=== PATIENT | male | born 1975 | race Caucasian/White ===

== ENCOUNTER 2016-11-02 20:13 | Emergency (ER) ==
[2016-11-02] MEDS ORDERED: TORADOL IM STA (20:14)
[2016-11-02] MEDS ORDERED: NORFLEX IM STA (20:14)
[2016-11-02] MEDS ORDERED: DILAUDID 1 MG/ML SYRINGE IM STA (20:14)
[2016-11-02 20:21] VITALS: BP 149/101; TEMP 98.3; BMI 38.3
--- NOTE | 2016-11-02 20:34 | ED.PDOC ---
General ED Provider: Dr. ELSA GARCIA-ER Chief Complaint: Extremity Pain/Injury Stated Complaint: i hurt my arm about 2 weeks ago when arm wrestling and then today i hurt it swimming Time Seen by Physician: 20:15 Mode of Arrival: Walk-In Information Source: Patient Exam Limitations: No limitations Primary Care Provider: BA VILLEDA Nursing and Triage Documentation Reviewed and Agree: Yes Musculoskeletal Complaint Exam - Upper Extremity Complaint/Exam Location of Pain: Reports: Left, Arm Mechanism of Injury: Reports: Trauma Onset/Duration: 2 weeks Symptoms Are: Still present Timing: Constant Episodes Lasting: Hours Initial Severity: Mild Current Severity: Moderate Location: Reports: Discrete (left bicep) Character: Reports: Dull, Aching, Throbbing Aggravating: Reports: Movement, Lifting, Flexion, Extension, Internal rotation, External rotation Alleviating: Reports: None Non-Orthopedic Risk Factors: Reports: None Upper Extremity Findings: Present: Tenderness, Limited range of motion. Absent : Swelling, Ecchymosis, Abnormal contour, Rotation, Ligamentous instability, Laceration, Erythema, Warmth, Blisters, Other joint pain, Foreign body NV Bundle Intact Distal to Injury: Yes Compartment Syndrome Risk Factors: Present: Pain. Absent: Paralysis, Pallor, Pulselessness, Paresthesias Differential Diagnoses: Strain, Sprain, Other Quality Indicator For Non-Traumatic Chest Pain/Syncope: EKG Performed Review of Systems - Review Of Systems Constitutional: Reports: No symptoms Eyes: Reports: No symptoms Ears, Nose, Mouth, Throat: Reports: No symptoms Respiratory: Reports: No symptoms Cardiac: Reports: No symptoms GI: Reports: No symptoms : Reports: No symptoms Musculoskeletal: Reports: Muscle pain Skin: Reports: No symptoms Neurological: Reports: No symptoms Endocrine: Reports: No symptoms Hematologic/Lymphatic: Reports: No symptoms All Other Systems: Reviewed and Negative Past Medical History - Past Medical History Previously Healthy: No Endocrine: Reports: Unknown Cardiovascular: Reports: Unknown Respiratory: Reports: Unknown Hematological: Reports: Unknown Gastrointestinal: Reports: Unknown Genitourinary: Reports: Unknown Neuro/Psych: Reports: Unknown Musculoskeletal: Reports: Unknown Cancer: Reports: Unknown - Surgical History General Surgical History: Reports: Unknown - Family History Family History: Reports: Unknown - Social History Smoking Status: Current every day smoker, Heavy tobacco smoker Hx Substance Use: No Alcohol Screening: None Lives: With family - Immunizations Tetanus Shot up to Date: Yes Physical Exam - Physical Exam Appearance: Well-appearing Pain Distress: Moderate Eyes: LUI, EOMI, Conjunctiva clear ENT: Ears normal, Nose normal, Oropharynx normal Neck: Supple Respiratory: Airway patent, Breath sounds clear, Breath sounds equal, Respirations nonlabored Cardiovascular: RRR, Pulses normal, No rub, No murmur GI/: Soft, Nontender, No masses, Bowel sounds normal, No Organomegaly Musculoskeletal: Limited strength Skin: Warm, Dry, Normal color Neurological: Sensation intact, Motor intact, Reflexes intact, Cranial nerves intact, Alert, Oriented Psychiatric: Affect appropriate, Mood appropriate Interpretation - Radiology Interpretation Radiology Interpretation By: Radiologist Radiology Results: Negative - EKG Interpretation Time of EKG #1: 20:46 Rate: Normal Rhythm: Sinus Ectopy: None [place]: NL ST Segment: Normal Re-Evaluation - Re-Evaluation Time of Re-Evaluation: 20:46 Status: Improved Vital Signs Stable: Yes Pain Level: 1 Appearance: NAD Lungs: Clear Skin: Warm and Dry Neuro: Alert and Oriented X3 CV: RRR Critical Care Note - Critical Care Note Total Time (mins): 0 Course - Course Orders, Labs, Meds: Orders Category Date Time Status EKG-(ED ONLY) Stat CARDIO 11/02/16 20:15 Ordered Splint [ED SPLINT APPLICATION] .ONCE EMERGENCY 11/02/16 20:45 Active Hydromorphone HCl [Dilaudid 1 mg/ml Syringe] MEDS 11/02/16 20:14 Discontinued 1 mg IM ONCE STA Ketorolac Tromethamine [Toradol] MEDS 11/02/16 20:14 Discontinued 60 mg IM ONCE STA Orphenadrine Citrate [Norflex] MEDS 11/02/16 20:14 Discontinued 60 mg IM ONCE STA HUMERUS, LEFT 2VIEWS Stat RADS 11/02/16 20:14 Taken Medications Discontinued Medications Generic Name Dose Route Start Last Admin Trade Name Freq PRN Reason Stop Dose Admin Hydromorphone HCl 1 mg 11/02/16 20:14 11/02/16 20:40 Dilaudid 1 Mg/Ml Syringe IM 11/02/16 20:15 1 mg ONCE STA Administration Ketorolac Tromethamine 60 mg 11/02/16 20:14 11/02/16 20:41 Toradol IM 11/02/16 20:15 60 mg ONCE STA Administration Orphenadrine Citrate 60 mg 11/02/16 20:14 11/02/16 20:40 Norflex IM 11/02/16 20:15 60 mg ONCE STA Administration Vital Signs: Temp Pulse Resp BP Pulse Ox 11/02/16 20:13 98.3 F 74 20 149/101 H 97 Departure - Departure Time of Disposition: 20:46 Disposition: HOME SELF-CARE Discharge Problem: Biceps muscle tear Qualifiers: Encounter type: initial encounter Laterality: left Qualifier Code: (S46.112A) Strain of muscle, fascia and tendon of long head of biceps, left arm, initial encounter Instructions: Tendon Rupture (ED) Condition: Good Pt referred to PMD for follow-up: Yes Additional Instructions: stay in sling--norco 7.5mg q 4hrs prn pain #12--f/u with pcp tomorrow--consider mri of the arm vs ortho referral Allergies/Adverse Reactions: Allergies morphine Adverse Reaction (Verified 11/02/16 20:19) Penicillins Adverse Reaction (Verified 11/02/16 20:19) Home Medications: Ambulatory Orders Albuterol Sulfate [Proair Hfa] 2 puff IH Q4H PRN 09/28/12 Ranitidine HCl 600 mg PO BID 11/02/16 Disposition Discussed With: Patient, Family
--- NOTE | 2016-11-03 02:06 | DI ---
EXAM: Left humerus two views HISTORY: Trauma COMPARISON: None. FINDINGS: There is no acute fracture or dislocation. The surrounding soft tissues are unremarkable . IMPRESSION: No acute findings.
== END 2016-11-02 21:00 | disposition home or self-care (01) ==
LOC: ED 20:13
DX: S46.112A Strain of muscle, fascia and tendon of long head of biceps, left arm, initial encounter (principal); X50.1XXA Overexertion from prolonged static or awkward postures, initial encounter; Y93.11 Activity, swimming; F17.210 Nicotine dependence, cigarettes, uncomplicated
CPT/HCPCS: 93005; 93010; 96372; 99283

== ENCOUNTER 2018-03-13 14:41 | Emergency (ER) | payer OTHER ==
[2018-03-13 14:46] VITALS: BP 174/94; TEMP 98.6; BMI 48.1
--- NOTE | 2018-03-13 16:13 | ED.PDOC ---
General ED Provider: Dr. ELSA MAYERS Chief Complaint: Abdominal Pain Stated Complaint: Lt Groin and hip pain. Unable to lift leg up. Sore yesterday when awakening but went walking all day deer hunting. This morning developed severe pain Time Seen by Physician: 15:50 Mode of Arrival: Walk-In Information Source: Patient Exam Limitations: Clinical condition Nursing and Triage Documentation Reviewed and Agree: Yes Does patient meet sepsis criteria?: No System Inflammatory Response Syndrome: Not Applicable Sepsis Protocol: For patient's 13 years and over: Temp is 96.8 and below OR 101 and greater Pulse >90 BPM Resp >20/minute Acutely Altered Mental Status Are patient's symptoms suggestive of a new infection, such as: -Pneumonia -Skin, Soft Tissue -Endocarditis -UTI -Bone, Joint Infection -Implantable Device -Acute Abdominal Infection -Wound Infection -Meningitis -Blood Stream Catheter Infection -Unknown Review of Systems - Review Of Systems Constitutional: Reports: No symptoms Eyes: Reports: No symptoms Ears, Nose, Mouth, Throat: Reports: No symptoms Respiratory: Reports: No symptoms Cardiac: Reports: No symptoms GI: Reports: No symptoms Musculoskeletal: Reports: Joint pain, Muscle pain, Muscle stiffness Skin: Reports: No symptoms Neurological: Reports: No symptoms Endocrine: Reports: No symptoms Hematologic/Lymphatic: Reports: No symptoms All Other Systems: Reviewed and Negative Past Medical History - Past Medical History Previously Healthy: No Endocrine: Reports: Unknown Cardiovascular: Reports: Unknown Respiratory: Reports: Unknown Hematological: Reports: Unknown Gastrointestinal: Reports: Unknown Genitourinary: Reports: Unknown Neuro/Psych: Reports: Unknown Musculoskeletal: Reports: Unknown Cancer: Reports: Unknown - Surgical History General Surgical History: Reports: Unknown - Family History Family History: Reports: Unknown - Social History Smoking Status: Current every day smoker, Heavy tobacco smoker Hx Substance Use: No Alcohol Screening: None Physical Exam - Physical Exam Appearance: Well-appearing, Obese Ill-appearing: None Pain Distress: Moderate Eyes: LUI, EOMI, Conjunctiva clear ENT: Ears normal, Nose normal, Oropharynx normal Neck: Supple Respiratory: Airway patent Cardiovascular: RRR, Pulses normal, No rub, No murmur GI/: Soft, Nontender, No masses, Bowel sounds normal, No Organomegaly Musculoskeletal: Normal strength, No edema, No calf tenderness, Limited ROM (Lt hip ) Neurological: Sensation intact, Motor intact, Reflexes intact, Cranial nerves intact, Alert, Oriented Psychiatric: Affect appropriate, Mood appropriate Critical Care Note - Critical Care Note Total Time (mins): 60 Course - Course Hematology/Chemistry: 03/13/18 16:15 03/13/18 16:15 Orders, Labs, Meds: Lab Review 03/13/18 03/13/18 03/13/18 15:00 16:15 16:15 WBC 8.25 RBC 4.45 L Hgb 13.6 L Hct 41.3 L MCV 92.8 MCH 30.6 MCHC 32.9 RDW Coeff of Henri 13.3 Plt Count 236 Immature Gran % (Auto) 0.1 Neut % (Auto) 67.2 Lymph % (Auto) 17.8 [place] % (Auto) 7.5 Eos % (Auto) 6.8 Baso % (Auto) 0.6 Immature Gran # (Auto) 0.0 Neut # (Auto) 5.5 Lymph # (Auto) 1.5 [place] # (Auto) 0.6 Eos # (Auto) 0.6 Baso # (Auto) 0.1 Sodium 134.3 L Potassium 4.32 Chloride 102.1 Carbon Dioxide 29.0 Anion Gap 7.52 BUN 11.0 Creatinine 0.72 Estimated GFR (MDRD) 121.00 BUN/Creatinine Ratio 15.27 Glucose 117.5 H Calcium 9.37 Total Bilirubin 0.34 AST 52.1 ALT 64.6 H Alkaline Phosphatase 74.5 Total Protein 7.36 Albumin 4.07 Globulin 3.29 Albumin/Globulin Ratio 1.23 Urine Color Yellow Urine Clarity Clear Urine pH 6.0 Ur Specific [place] 1.020 Urine Protein Negative Urine Glucose (UA) Negative Urine Ketones Negative Urine Blood Negative Urine Nitrite Negative Urine Bilirubin Negative Urine Urobilinogen 0.2 Ur Leukocyte Esterase Negative Orders Category Date Time Status CBC W/ AUTO DIFF Stat LAB 03/13/18 16:15 Completed CMP [COMPREHENSIVE METABOLIC PANEL] Stat LAB 03/13/18 16:15 Completed URINALYSIS C & S IF INDICATED Stat LAB 03/13/18 15:00 Completed Ketorolac Tromethamine [Toradol] MEDS 03/13/18 16:12 Discontinued 30 mg IM ONCE STA Nalbuphine HCl [Nubain] MEDS 03/13/18 17:41 Discontinued 10 mg IM ONCE STA CT ABDOMEN/PELVIS WO CONTRAST Stat RADS 03/13/18 16:[address] HIP LEFT WITHOUT CONTRAST Stat RADS 03/13/18 16:11 Completed Medications Discontinued Medications Generic Name Dose Route Start Last Admin Trade Name Ondina PRN Reason Stop Dose Admin Ketorolac Tromethamine 30 mg 03/13/18 16:12 03/13/18 16:19 Toradol IM 03/13/18 16:13 30 mg ONCE STA Administration Nalbuphine HCl 10 mg 03/13/18 17:41 03/13/18 17:48 Nubain IM 03/13/18 17:42 10 mg ONCE STA Administration Vital Signs: Temp Pulse Resp BP Pulse Ox 03/13/18 14:42 98.6 F 106 H 20 174/94 H 95 Departure - Departure Time of Disposition: 19:00 Disposition: HOME SELF-CARE Discharge Problem: Strain of hip flexor, Tendonitis Instructions: Muscle Strain (ED) Condition: Fair Pt referred to PMD for follow-up: Yes ( next week ) IPMP verified?: No Additional Instructions: Ice /elevation Meds as directed Return if worsens or fails to improve over next 72 hrs Prescriptions: Hydrocodone/Acetaminophen [[place] 5-325 Tablet] 1 - 2 tab PO Q4-6H PRN #20 PRN Reason: Pain Prednisone 10 mg PO DAILY #20 tablet Allergies/Adverse Reactions: Allergies morphine Adverse Reaction (Verified 03/13/18 14:48) Penicillins Adverse Reaction (Verified 03/13/18 14:48) Home Medications: Ambulatory Orders Albuterol Sulfate [Proair Hfa] 2 puff IH Q4H PRN 09/28/12 Ranitidine HCl 600 mg PO BID 11/02/16 Hydrocodone/Acetaminophen [[place] 5-325 Tablet] 1 - 2 tab PO Q4-6H PRN #20 Lisinopril 20 mg PO DAILY 03/13/18 Phentermine HCl 37.5 mg PO DAILY 03/13/18 Prednisone 10 mg PO DAILY #20 tablet 03/13/18 Venlafaxine HCl [Effexor] 75 mg PO DAILY 03/13/18 Disposition Discussed With: Patient, Family
[2018-03-13] MEDS: TORADOL IM STA (16:19)
--- NOTE | 2018-03-13 17:06 | CT ---
EXAM: CT abdomen pelvis without contrast TECHNIQUE: Helical axial CT of the abdomen and pelvis was performed without contrast with coronal an d sagittal reconstructions. COMPARISON: CT abdomen pelvis from 11/12/2010 HISTORY: Abdominal pain FINDINGS: There is no acute abnormality. Specifically there is no mesenteric inflammation, free air, free fluid or bowel wall thickening or edema or pathologic lymph nodes or obstruction or ileus. The appendix is normal There are no inflamed colonic diverticula. The liver, spleen, pancreas,and adrenal glands show no acute abnormality. There is advanced hepatic s teatosis. Lung bases are well-aerated. There is no hiatal hernia. There has been prior cholecystecto my. There is no biliary or pancreatic ductal dilatation. There are no suspicious renal masses or large cysts and no hydronephrosis. There are no kidney stones . Both ureters demonstrate normal course and caliber. There is no filling defect in the urinary blad chalo. There is a fat-containing umbilical hernia. There are fat-containing bilateral inguinal hernias. The aorta is normal with no aneurysm or calcific atherosclerosis. There are no acute osseous abnormaliti es. IMPRESSION: 1. No acute abnormality in the abdomen or pelvis. Specifically there is no free air free fluid or b owel wall thickening or edema. 2. Fatty liver. 3. Fat-containing umbilical and bilateral inguinal hernias. 4. Prior cholecystectomy.
--- NOTE | 2018-03-13 17:11 | CT ---
EXAM: CT of the left hip without contrast TECHNIQUE: Helical axial CT of the left hip was performed without contrast with coronal and sagittal reconstructions. This COMPARISON: Plain film series of the left hip from same day HISTORY: Hip pain FINDINGS: There is no acute fracture or dislocation. Alignment is anatomic. There is no evidence f or femoral neck fracture or acetabular fracture. There is no impaction. The greater and lesser troc hanter are intact. The sacral ala is intact. There is no evidence for superior or inferior pubic ra mus fracture. Soft tissues are negative. There is a moderate degree of degenerative change noted in the left hip joint. IMPRESSION: 1. Degenerative change of the left hip with no acute osseous abnormality.
[2018-03-13] MEDS: NUBAIN IM STA (17:48)
== END 2018-03-13 19:08 | disposition home or self-care (01) ==
LOC: ED 14:41
DX: S76.012A Strain of muscle, fascia and tendon of left hip, initial encounter (principal); M76.02 Gluteal tendinitis, left hip; X50.1XXA Overexertion from prolonged static or awkward postures, initial encounter; F17.210 Nicotine dependence, cigarettes, uncomplicated
CPT/HCPCS: 36415; 80053; 81001; 85025; 96372; 99283

== ENCOUNTER 2022-09-06 20:40 | Observation (INO) ==
--- NOTE | 2022-09-06 21:05 | ED.PDOC ---
General ED Provider: Dr. MADDIE CHAND MD Chief Complaint: Extremity Pain/Injury Stated Complaint: Patient history of COPD, hypertension, type 2 diabetes complains of having swelling in both lower extremities, noticed a blister left drainage from his right blackmon 2 days ago placed on antibiotic Bactrim DS yesterday. Patient complains of shortness of breath has history of sleep apnea, patient complains of pain in both calves. Denies coughing, chest pain, diaphoresis, Time Seen by Provider: 09/06/22 20:57 Mode of Arrival: Walk-In Information Source: Patient Exam Limitations: No limitations Nursing and Triage Documentation Reviewed and Agree: Yes Does patient meet sepsis criteria?: Yes If yes, has appropriate treatment been initiated?: Yes System Inflammatory Response Syndrome: Not Applicable Sepsis Protocol: For patient's 13 years and over: Temp is 96.8 and below OR 101 and greater Pulse >90 BPM Resp >20/minute Acutely Altered Mental Status Are patient's symptoms suggestive of a new infection, such as: -Pneumonia -Skin, Soft Tissue -Endocarditis -UTI -Bone, Joint Infection -Implantable Device -Acute Abdominal Infection -Wound Infection -Meningitis -Blood Stream Catheter Infection -Unknown Musculoskeletal Complaint Exam Lower Extremity Complaint/Exam Location of Pain: Reports Right, Left and Leg (Lower extremity swelling with redness of the shins.) Mechanism of Injury: Reports No known trauma Onset/Duration: Past 2 days Symptoms Are: Still present Initial Severity: Moderate Current Severity: Moderate Character: Reports Sharp and Throbbing Aggravating: Reports Movement and Weight bearing Able to Bear Weight: Yes Associated Signs and Symptoms: Reports Swelling and Redness Related History: Denies Similar episode DVT Risk Factors: Reports Recent bedrest (Morbidly obese) Lower Extremity Findings: Present Swelling, Erythema, Warmth and Blisters NV Bundle Intact Distal to Injury: No Compartment Syndrome Risk Factors: Absent Pain, Paralysis, Pallor, Pulselessness or Paresthesias Don's Sign Present: Yes Differential Diagnoses: Other (Bilateral lower extremity cellulitis, DVT lower extremity.) Review of Systems Review Of Systems Constitutional: Reports Fever Eyes: Reports No symptoms Respiratory: Reports No symptoms Cardiac: Reports No symptoms GI: Reports No symptoms : Reports No symptoms Musculoskeletal: Reports Muscle pain and Other (Bilateral calf pain swelling of the right lower extremity was redness.) Skin: Reports No symptoms Neurological: Reports No symptoms; Denies Anxiety, Depressed or Emotional p roblems Endocrine: Reports No symptoms; Denies Excessive sweating Hematologic/Lymphatic: Reports No symptoms; Denies Anemia All Other Systems: Reviewed and Negative [facility] Social History Smoking and tobacco status: Current every day smoker Physical Exam Physical Exam Appearance: Reports Well-appearing Ill-appearing: Not Applicable Pain Distress: Mild Eyes: Reports LUI; Denies Conjunctiva inflammed ENT: Reports Ears normal, Nose normal and Oropharynx normal; Denies TMs Occluded Neck: Supple Respiratory: Reports Airway patent, Breath sounds clear and Breath sounds equal; Denies Breath sounds diminished Cardiovascular: Reports Pulses normal and Tachycardia GI/: Reports Soft, Nontender, Bowel sounds normal and No Organomegaly; Denies Tender Musculoskeletal: Reports Normal strength, Edema and Calf tenderness (There is bilateral calf tenderness noted. There is erythema of the mid to distal right blackmon with a ruptured bullae formation and surrounding erythema and dried drainage. Bilateral Homans' sign) Skin: Reports Warm (There is bilateral blackmon erythema and warmth in the right greater than left. Bilateral pedis pulses 2+.) Neurological: Reports Sensation intact Psychiatric: Reports Affect appropriate and Mood appropriate Interpretation EKG Interpretation Time of EKG #1: 21:32 Rate: Tachy Rhythm: Sinus Ectopy: None [place]: [place] ST Segment: Other Interpretation: EKG interpretation by myself, Radiology Interpretation Radiology Interpretation By: Radiologist Radiology Results: No acute changes Exam Interpreted: Portable CXR Xray Comments: Portable chest x-ray interpreted by the radiologist. Re-Evaluation Re-Evaluation Time of Re-Evaluation: 00:01 Status: Improved Vital Signs Stable: Yes Pain Level: Headache discomfort improved from 8/10 down to a 3/10. Physician Notification Case Discussed Physician Notified: Discussed with hospitalist Rebecca Time of Notification: 23:10 Comments: Discussed patient's presentation emergency room course results of the lab tests EKG, portable chest x-ray and CT of the chest. Will admit to observation. Critical Care Note Critical Care Note Total Critical Care Time (mins): 20 Course Course 09/06/22 21:40 09/06/22 21:40 Orders, Labs, Meds: Lab Review 09/06/22 09/06/22 20:26 21:40 WBC 6.93 RBC 4.25 L Hgb 13.4 L Hct 40.7 L MCV 95.8 H MCH 31.5 H MCHC 32.9 RDW Coeff of Henri 12.8 Plt Count 204 Immature Gran % (Auto) 0.4 Neut % (Auto) 75.1 Lymph % (Auto) 7.9 L [place]con % (Auto) 10.4 H Eos % (Auto) 5.9 Baso % (Auto) 0.3 Neut # (Auto) 5.2 Lymph # (Auto) 0.6 [place]con # (Auto) 0.7 Eos # (Auto) 0.4 Baso # (Auto) 0.0 Immature Gran # (Auto) 0.0 PT 10.8 INR 1.04 APTT 26.7 Puncture Site Lr Base Excess 7.9 H O2 Saturation 92.3 L ABG pH 7.49 H ABG pCO2 41.0 ABG pO2 59.0 L* ABG HCO3 31.2 H ABG Total CO2 32.5 H Baljeet Test Pos Hemoglobin 0.8 Oxyhemoglobin 90.9 L Carboxyhemoglobin 1.7 H Total Hemoglobin 13.4 O2 Delivery Device Ra FiO2 % 21.0 Sodium 136.7 Potassium 3.51 Chloride 97.1 L Carbon Dioxide 35.2 H Anion Gap 7.91 BUN 7.8 L Creatinine 0.64 Estimated GFR (MDRD) 135.00 BUN/Creatinine Ratio 12.18 Glucose 141.5 H Lactic Acid 3.50 H Calcium 8.66 Total Bilirubin 0.48 AST 151.2 H ALT 68.4 H Alkaline Phosphatase 65.4 Troponin I < 0.012 Total Protein 7.43 Albumin 4.24 Globulin 3.19 Albumin/Globulin Ratio 1.32 D-Dimer 589.96 H Orders Category Date Time Status ABG DRAW REQUEST Stat CARDIO 09/06/22 21:05 Completed EKG-(ED ONLY) Stat CARDIO 09/06/22 21:05 Completed NPO REMINDER: IMAGING ONCE CARE 09/06/22 22:52 Completed TELEMETRY MONITORING TELE CARE 09/06/22 21:05 Active ED IV/MEDIPORT/POWERPORT .ONCE EMERGENCY 09/06/22 21:08 Active ABG COOX Stat LAB 09/06/22 20:26 Completed BLOOD CULTURE (ED ONLY) Stat LAB 09/06/22 21:40 Received CBC W/ AUTO DIFF Stat LAB 09/06/22 21:40 Completed CMP [COMPREHENSIVE METABOLIC PANEL] Stat LAB 09/06/22 21:40 Completed D-DIMER Stat LAB 09/06/22 21:40 Completed LACTIC ACID Stat LAB 09/06/22 21:40 Completed LACTIC ACID Stat LAB 09/07/22 00:41 Ordered PT WITH INR Stat LAB 09/06/22 21:40 Completed PTT [PARTIAL THROMBOPLASTIN TIME] Stat LAB 09/06/22 21:40 Completed TROPONIN I Stat LAB 09/06/22 21:40 Completed 0.9 % Sodium Chloride [Saline Flush] Meds 09/06/22 21:08 Active 1 syr IVF PRN PRN Acetaminophen [Tylenol] Meds 09/06/22 22:37 Discontinued 1,000 mg PO ONCE ONE Enoxaparin Sodium [Lovenox] Meds 09/06/22 22:52 Discontinued 100 mg SUBCUT ONCE STA Fentanyl Citrate/Pf [Sublimaze] Meds 09/06/22 23:50 Discontinued 50 mcg IVP ONCE ONE Lidocaine HCl/Pf [Lidocaine HCl 1% Sdv] Meds 09/06/22 22:06 Discontinued 5 ml SUBCUT ONCE STA Ondansetron HCl/Pf [Zofran 4 mg/2 ml] Meds 09/06/22 23:18 Discontinued 4 mg IVP ONCE STA Sodium Chloride 0.9% [Sodium Chloride] 1,000 ml Meds 09/06/22 22:31 Discontinued IV BOLUS Sodium Chloride 0.9% [Sodium Chloride] 500 ml Meds 09/06/22 21:08 Discontinued IV BOLUS Vancomycin/Water For Inj (Peg) [Vancomycin 1 Gram/200 Meds 09/06/22 22:37 Discontinued ml Premix] 1 gm in 200 ml IV ONCE CHEST, 1V AP ONLY Stat RADS 09/06/22 21:05 Completed CTA CHEST PE PROTOCOL Stat RADS 09/06/22 22:52 Completed Medications Generic Name Dose Route Start Last Admin Trade Name Freq PRN Reason Stop Dose Admin Sodium Chloride 1 syr 09/06/22 21:08 0.9% Sodium Chloride 10 Ml Disp.Syrin IVF PRN PRN To flush IV Discontinued Medications Generic Name Dose Route Start Last Admin Trade Name Freq PRN Reason Stop Dose Admin Acetaminophen 1,000 mg 09/06/22 22:37 09/06/22 22:43 Acetaminophen 500 Mg Tablet PO 09/06/22 22:38 1,000 mg ONCE ONE Administration Enoxaparin Sodium 100 mg 09/06/22 22:52 09/06/22 23:40 Enoxaparin Sodium 100 Mg/Ml Syr SUBCUT 09/06/22 22:53 100 mg ONCE STA Administration Fentanyl Citrate 50 mcg 09/06/22 23:50 09/07/22 00:18 Fentanyl 50 Mcg/Ml Sdv IVP 09/06/22 23:51 50 mcg ONCE ONE Administration Sodium Chloride 500 mls @ 500 mls/hr 09/06/22 21:08 09/06/22 21:40 Sodium Chloride IV 09/06/22 22:07 500 mls/hr BOLUS STA Administration Sodium Chloride 1,000 mls @ 1,000 mls/hr 09/06/22 22:31 09/06/22 22:45 Sodium Chloride IV 09/06/22 23:30 1,000 mls/hr BOLUS STA Administration VANCOMYCIN/WATER FOR INJ (PEG) 1 gm in 200 mls @ 200 mls/hr 09/06/22 22:37 09/06/22 22:44 Vancomycin 1 Gram/200 Ml Premix IV 09/06/22 23:36 200 mls/hr ONCE ONE Administration Lidocaine HCl 5 ml 09/06/22 22:06 09/06/22 22:11 Lidocaine Hcl/Pf 1% 5 Ml Vial SUBCUT 09/06/22 22:07 1 ml ONCE STA Administration Ondansetron HCl 4 mg 09/06/22 23:18 09/06/22 23:24 Ondansetron Hcl/Pf 4 Mg/2 Ml Sdv IVP 09/06/22 23:19 4 mg ONCE STA Administration Vital Signs: Temp Pulse Resp BP Pulse Ox 09/06/22 20:41 103 F H 104 H 20 187/103 H 94 L Discharge Plan Discharge Patient Disposition: PLACED OBSERVATION Discharge Problem: Bilateral lower leg cellulitis Did you review [place] [employer] for ALL controlled substances?: No ED Provider: MADDIE CHAND Condition: Stable Physician Progress Note: History obtained from patient []Patient history of COPD, hypertension, type 2 diabetes complains of having swelling in both lower extremities, noticed a blister left drainage from his ri ght blackmon 2 days ago placed on antibiotic Bactrim DS yesterday. Patient complains of shortness of breath has history of sleep apnea, patient complains of pain in both calves. Denies coughing, chest pain, diaphoresis, Patient placed on sepsis protocol ministered 1500 mL over 2 hours, after 2 sets of blood culture ministered vancomycin 1500 mg IV piggyback. Tylenol gram orally Zofran 4 mg and fentanyl 50 mics IV. Chest x-ray interpreted by the radiologist unremarkable. CT of the chest PE protocol interpreted by the radiologist shows evidence of pulm embolism. All laboratory data CBC CMP interpreted by myself. D-dimer 589, lactic acid 3.5, troponin 0.012. CBC to capsule count is normal 6900. EKG interpreted by myself consistent with normal sinus rhythm sinus tachycardia rate 108. .. There is no prolongation of NH QT interval noted. Discussed with hospitalist Hortensia at 2310 for observation. Differential diagnosis: 1) cellulitis bilateral lower extremity 2) DVT lower extremity 3) acute pulmonary embolism
[2022-09-06] MEDS ORDERED: SODIUM CHLORIDE 500 ML IV STA (21:08)
--- NOTE | 2022-09-06 21:24 | DI ---
EXAM: SINGLE VIEW OF THE CHEST. History: Dyspnea. Comparison: Chest radiograph 09/02/2021 FINDINGS: Heart size is normal. No consolidation. No pleural fluid and no pneumothorax. No acute osseous abnormalities. Impression: Normal study
[2022-09-06 22:01] LABS: BASOPHILS % (AUTO) 0.3 % (0.0-3.0); EOSINOPHILS # (AUTO) 0.4 K/ul (0.0-0.7); EOSINOPHILS % (AUTO) 5.9 % (0.0-7.0); HEMATOCRIT 40.7 % (42.0-52.0); HEMOGLOBIN 13.4 g/dl (14.0-18.0); IMMATURE GRANULOCYTE % (AUTO) 0.4 % (0.0-5.0); LYMPHOCYTES # (AUTO) 0.6 K/uL (0.60-3.4); LYMPHOCYTES % (AUTO) 7.9 (10.0-50.0); MEAN CORPUSCULAR HEMOGLOBIN 31.5 pg (27.0-31.0); MEAN CORPUSCULAR HGB CONC 32.9 (31.8-35.4); MEAN CORPUSCULAR VOLUME 95.8 fl (80.0-94.0); MONOCYTES # (AUTO) 0.7 K/uL (0.4-2.0); MONOCYTES % (AUTO) 10.4 (0-10); NEUTROPHILS # (AUTO) 5.2 K/ul (2.0-6.9); NEUTROPHILS % (AUTO) 75.1 % (42.2-75.2); PLATELET COUNT 204 10^3/uL (140-440); RDW COEFFICIENT OF VARIATION 12.8 % (11.6-14.8); RED BLOOD COUNT 4.25 10^6/ul (4.70-6.10); WHITE BLOOD COUNT 6.93 K/ul (4.2-10.2)
[2022-09-06] MEDS ORDERED: LIDOCAINE HCL 1% SDV SUBCUT STA (22:06)
[2022-09-06 22:12] LABS: ALANINE AMINOTRANSFERASE 68.4 U/L (0-50); ALBUMIN 4.24 g/dL (3.5-5.0); ALKALINE PHOSPHATASE 65.4 U/L (38-126); ASPARTATE AMINO TRANSFERASE 151.2 U/L (17-59); BILIRUBIN,TOTAL 0.48 mg/dL (0.2-1.3); BLOOD UREA NITROGEN 7.8 mg/dL (9-20); CALCIUM 8.66 mg/dL (8.4-10.2); CARBON DIOXIDE 35.2 mmol/L (22-30.0); CHLORIDE 97.1 mmol/L (98-107); CREATININE 0.64 mg/dL (0.60-1.10); GLUCOSE 141.5 mg/dL (74-106); POTASSIUM 3.51 mmol/L (3.5-5.1); SODIUM 136.7 mmol/L (134.5-145); TOTAL PROTEIN 7.43 g/dL (6.3-8.2)
[2022-09-06 22:18] LABS: ABG O2 HGB 90.9 % (95-100); ABG PH 7.49 (7.35-7.45); BEecf 7.9 (-2.0-3.0); COHb 1.7 (0.5-1.5); HCO3 31.2 (21-28); MetHb 0.8 (0-1.5); TCO2 32.5 (19-24); sO2 92.3 % (94-98); tHb 13.4 g/dl (11.7-17.4)
[2022-09-06 22:27] LABS: TROPONIN I < 0.012 ng/ml (0.0000-0.120)
[2022-09-06] MEDS ORDERED: SODIUM CHLORIDE 1,000 ML IV STA (22:31)
[2022-09-06] MEDS ORDERED: TYLENOL PO ONE (22:37)
[2022-09-06] MEDS ORDERED: VANCOMYCIN 1 GRAM/200 ML PREMIX 1 GM/200 ML BAG IV ONE (22:37)
[2022-09-06 22:38] LABS: PARTIAL THROMBOPLASTIN TIME 26.7 SEC (23.9-40.0); PROTHROMBIN TIME 10.8 SEC (9.3-11.0)
[2022-09-06] MEDS ORDERED: LOVENOX SUBCUT STA (22:52)
[2022-09-06] MEDS ORDERED: ZOFRAN 4 MG/2 ML IVP STA (23:18)
[2022-09-06] MEDS ORDERED: SUBLIMAZE IVP ONE (23:50)
--- NOTE | 2022-09-07 | CT ---
EXAM: CTA CHEST HISTORY: Elevated D-dimer COMPARISON: None. FINDINGS: Postcontrast helical imaging was obtained through the thorax utilizing 2.5-mm collimation. The sagittal and coronal reconstructions were imaged and reviewed. Source images were utilized to our create rotating 3-D MIP images.. The thoracic inlet is unremarkable. There is no hilar or medias tinal lymphadenopathy. There is no evidence of pulmonary embolus. Heart is normal in size without p ericardial effusion. No consolidation or effusion.. Fatty infiltration is seen within the visualize d liver. Likely remote sternal body fracture. IMPRESSION: No evidence of pulmonary embolus. All CT scans are performed using dose optimization techniques as appropriate to the performed exam an d include at least one of the following: Automated exposure control, adjustment of the mA and/or kV according t o size, and the use of iterative reconstruction technique.
[2022-09-07] MEDS ORDERED: SODIUM CHLORIDE 1,000 ML IV STA (01:28)
[2022-09-07] MEDS ORDERED: SODIUM CHLORIDE 500 ML IV ONE (01:28)
[2022-09-07 02:24] VITALS: BMI 51.3
[2022-09-07] MEDS: TYLENOL PO PRN ×3 (04:21→20:25)
[2022-09-07 06:52] LABS: BASOPHILS % (AUTO) 0.4 % (0.0-3.0); EOSINOPHILS # (AUTO) 0.3 K/ul (0.0-0.7); EOSINOPHILS % (AUTO) 4.8 % (0.0-7.0); HEMOGLOBIN 11.9 g/dl (14.0-18.0); IMMATURE GRANULOCYTE % (AUTO) 0.4 % (0.0-5.0); LYMPHOCYTES # (AUTO) 0.8 K/uL (0.60-3.4); LYMPHOCYTES % (AUTO) 14.4 (10.0-50.0); MEAN CORPUSCULAR HEMOGLOBIN 31.6 pg (27.0-31.0); MEAN CORPUSCULAR HGB CONC 33.1 (31.8-35.4); MEAN CORPUSCULAR VOLUME 95.5 fl (80.0-94.0); MONOCYTES # (AUTO) 0.7 K/uL (0.4-2.0); MONOCYTES % (AUTO) 12.8 (0-10); NEUTROPHILS # (AUTO) 3.6 K/ul (2.0-6.9); NEUTROPHILS % (AUTO) 67.2 % (42.2-75.2); PLATELET COUNT 174 10^3/uL (140-440); RED BLOOD COUNT 3.77 10^6/ul (4.70-6.10); WHITE BLOOD COUNT 5.41 K/ul (4.2-10.2)
[2022-09-07] MEDS ORDERED: VANCOMYCIN 1.5 GRAM/300 ML PREMIX 1.5 GM/300 ML BAG IV SCH (07:00)
[2022-09-07 07:03] LABS: ALANINE AMINOTRANSFERASE 59.3 U/L (0-50); ALBUMIN 3.57 g/dL (3.5-5.0); ASPARTATE AMINO TRANSFERASE 122.2 U/L (17-59); BILIRUBIN,TOTAL 0.32 mg/dL (0.2-1.3); BLOOD UREA NITROGEN 8.4 mg/dL (9-20); CALCIUM 7.94 mg/dL (8.4-10.2); CARBON DIOXIDE 33.6 mmol/L (22-30.0); CHLORIDE 100.4 mmol/L (98-107); CREATININE 0.7 mg/dL (0.60-1.10); GLUCOSE 145.6 mg/dL (74-106); POTASSIUM 3.67 mmol/L (3.5-5.1); SODIUM 135.7 mmol/L (134.5-145); TOTAL PROTEIN 6.45 g/dL (6.3-8.2)
[2022-09-07] MEDS ORDERED: GLUCOPHAGE PO SCH (08:30)
[2022-09-07] MEDS ORDERED: LASIX TAB PO SCH (09:00)
[2022-09-07] MEDS ORDERED: NORVASC PO SCH (09:00)
[2022-09-07] MEDS ORDERED: MAXIPIME 1 GM VIAL 1 GM in SODIUM CHLORIDE 50 ML IV SCH (09:00)
[2022-09-07] MEDS: MAXIPIME 2 GM/50 ML D5W 2 GM/50 ML BAG IV SCH ×3 (09:39→20:20)
[2022-09-07] MEDS: NORVASC PO SCH (09:40)
[2022-09-07] MEDS: ZESTRIL PO SCH (09:40)
[2022-09-07] MEDS: PRILOSEC PO SCH (09:40)
[2022-09-07] MEDS: LASIX TAB PO SCH (09:40)
[2022-09-07] MEDS: NEURONTIN PO SCH (09:40)
[2022-09-07] MEDS: LOVENOX SUBCUT SCH ×2 (09:40→20:20)
[2022-09-07] MEDS: VANCOMYCIN 1.5 GRAM/300 ML PREMIX 1.5 GM/300 ML BAG IV SCH ×2 (10:30→21:05)
--- NOTE | 2022-09-07 11:43 | PCM ---
Date of Service Date Seen by Provider: 09/07/22 Time Seen by Provider: 08:50 Admit Day/Time Admission Date: 09/06/22 Admission Time: Reason for Admission Chief Complaint: LOWER LEG CELLITIS Hospital Provider Hospital Provider: LOGAN TUCKER PA-C, [facility] History of Present Illness History of Present Illness: Patient is a 47-year-old male with past medical history of COPD, hypertension, diabetes and, DVT in early who presented from detention with chief complaint of lower extremity swelling and skin infection and shortness of breath. He states that he has noticed that over the last few days. He was started on Bactrim the day before admission. He states that he gets these lesions on his legs that become infected. 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 He states the swelling is new in the last few days as well. He feels that he is swollen from his abdomen down. He states that he is taken the Lasix since February but is unsure if if he has had an echo. His last IV meth use was in March shortly before he was incarcerated. He presented to the ER with a fever of 103. White blood cell count normal lactic was elevated but normalized with fluids. Liver enzymes mildly elevated. He was given vancomycin. CTA of the chest was negative for PE. He was given treatment dose of Lovenox. On my evaluation today the patient is still complaining of shortness of breath. He has not ran any fevers since. White blood cell count is still normal. Case Discussed With Case Discussed With: Patient's case was discussed with the ER Physicians, Dr. Schaeffer. 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.9 - Emphysema, unspecified (ICD-10) Depression F32.A - Depression, unspecified (ICD-10) Diabetes E11.9 - Type 2 diabetes mellitus without complications (ICD-10) Hypertension I10 - Essential (primary) hypertension (ICD-10) Sleep apnea in adult G47.30 - Sleep apnea, unspecified (ICD-10) Surgical History (Updated 09/07/22 @ 11:44 by LOGAN TUCKER PA-C) History of cholecystectomy Z90.49 - Acquired absence of other specified parts of digestive tract (ICD- 10) Family History (Updated 09/07/22 @ 11:46 by LOGAN TUCKER PA-C) SISTER Cancer FATHER Diabetes Myocardial infarction Social History (Updated 09/07/22 @ 11:44 by LOGAN TUCKER PA-C) Smoking and tobacco status: Current every day smoker Substance use type: former substance user, IV drugs and methamphetamine Allergies Allergies Allergy/AdvReac Type Severity Reaction Status Date / Time morphine AdvReac Rash Verified 09/07/22 02:25 Penicillins AdvReac Swelling Verified 09/07/22 02:25 Current Medications Home Medications metformin 1,000 mg tablet 1,000 mg PO BID 02/10/20 [History Confirmed 09/07/22 Last Taken 09/06/22] lisinopril 20 mg tablet 20 mg PO DAILY #30 tabs 11/18/20 [Rx Confirmed 09/07/22 Last Taken 09/06/22] amlodipine 5 mg tablet 5 mg PO DAILY 09/06/22 [History Confirmed 09/07/22 Last Taken 09/06/22] clonidine HCl 0.1 mg tablet 0.1 mg PO DAILY 09/06/22 [History Confirmed 09/07/22 Last Taken 09/06/22] furosemide 40 mg tablet 40 mg PO DAILY 09/06/22 [History Confirmed 09/07/22 Last Taken 09/06/22] gabapentin 300 mg capsule 300 mg PO DAILY 09/06/22 [History Confirmed 09/07/22 Last Taken 09/06/22] ibuprofen 200 mg capsule 200 mg PO Q6-8H PRN fever or pain 09/06/22 [History Confirmed 09/07/22 Last Taken 09/06/22] omeprazole 20 mg capsule,delayed release 20 mg PO DAILY 09/06/22 [History Confirmed 09/07/22 Last Taken 09/06/22] sulfamethoxazole 800 mg-trimethoprim 160 mg tablet (Bactrim DS) 1 tab PO BID 09/06/22 [History Confirmed 09/07/22 Last Taken 09/06/22] Home Acetaminophen (Acetaminophen 325 Mg Tablet) 650 mg PO Q4HR PRN PRN Reason: Fever >101 Last Admin: 09/07/22 04:21 Dose: 650 mg Amlodipine Besylate (Amlodipine Besylate 5 Mg Tablet) 5 mg PO DAILY [facility] Last Admin: 09/07/22 09:40 Dose: 5 mg Enoxaparin Sodium (Enoxaparin Sodium 100 Mg/Ml Syr) 100 mg SUBCUT Q12HR [facility] Last Admin: 09/07/22 09:40 Dose: 100 mg Furosemide (Furosemide 40 Mg Tablet) 40 mg PO DAILY [facility] Last Admin: 09/07/22 09:40 Dose: 40 mg Gabapentin (Gabapentin 300 Mg Capsule) 300 mg PO DAILY [facility] Last Admin: 09/07/22 09:40 Dose: 300 mg VANCOMYCIN/WATER FOR INJ (PEG) (Vancomycin 1.5 Gram/300 Ml Premix) 1.5 gm in 300 mls @ 200 mls/hr IV Q12HR [facility] Stop: 09/10/22 08:59 CEFEPIME 2 GM/D5W (Maxipime 2 Gm/50 Ml D5w) 2 gm in 50 mls @ 100 mls/hr IV Q8HR [facility] Stop: 09/10/22 07:29 Last Admin: 09/07/22 09:39 Dose: 100 mls/hr Insulin Human Lispro (Insulin Lispro 100 Unit/Ml (3 Ml) Vial) 0 unit SUBCUT PRN PRN; Protocol PRN Reason: Hyperglycemia Lisinopril (Lisinopril 10 Mg Tablet) 20 mg PO DAILY [facility] Last Admin: 09/07/22 09:40 Dose: 20 mg Omeprazole (Omeprazole 20 Mg Capsule.Dr) 20 mg PO QDAC [facility] Last Admin: 09/07/22 09:40 Dose: 20 mg Sodium Chloride (0.9% Sodium Chloride 10 Ml Disp.Syrin) 1 syr IVF PRN PRN PRN Reason: To flush IV Discontinued Medications Acetaminophen (Acetaminophen 500 Mg Tablet) 1,000 mg PO ONCE ONE Stop: 09/06/22 22:38 Last Admin: 09/06/22 22:43 Dose: 1,000 mg Amlodipine Besylate (Amlodipine Besylate 5 Mg Tablet) 5 mg PO DAILY [facility] Enoxaparin Sodium (Enoxaparin Sodium 100 Mg/Ml Syr) 100 mg SUBCUT ONCE STA Stop: 09/06/22 22:53 Last Admin: 09/06/22 23:40 Dose: 100 mg Fentanyl Citrate (Fentanyl 50 Mcg/Ml Sdv) 50 mcg IVP ONCE ONE Stop: 09/06/22 23:51 Last Admin: 09/07/22 00:18 Dose: 50 mcg Sodium Chloride (Sodium Chloride) 500 mls @ 500 mls/hr IV BOLUS STA Stop: 09/06/22 22:07 Last Admin: 09/06/22 21:40 Dose: 500 mls/hr Sodium Chloride (Sodium Chloride) 1,000 mls @ 1,000 mls/hr IV BOLUS STA Stop: 09/06/22 23:30 Last Admin: 09/06/22 22:45 Dose: 1,000 mls/hr VANCOMYCIN/WATER FOR INJ (PEG) (Vancomycin 1 Gram/200 Ml Premix) 1 gm in 200 mls @ 200 mls/hr IV ONCE ONE Stop: 09/06/22 23:36 Last Admin: 09/06/22 22:44 Dose: 200 mls/hr Sodium Chloride (Sodium Chloride) 500 mls @ 75 mls/hr IV .Q6H40M ONE Stop: 09/07/22 08:07 Last Admin: 09/07/22 10:16 Dose: Not Given Sodium Chloride (Sodium Chloride) 1,000 mls @ 75 mls/hr IV .[id number] STA Stop: 09/07/22 14:47 Last Admin: 09/07/22 04:12 Dose: 75 mls/hr VANCOMYCIN/WATER FOR INJ (PEG) (Vancomycin 1.5 Gram/300 Ml Premix) 1.5 gm in 300 mls @ 200 mls/hr IV Q8H [facility] Stop: 09/10/22 06:59 Lidocaine HCl (Lidocaine Hcl/Pf 1% 5 Ml Vial) 5 ml SUBCUT ONCE STA Stop: 09/06/22 22:07 Last Admin: 09/06/22 22:11 Dose: 1 ml Metformin HCl (Metformin Hcl 500 Mg Tablet) 1,000 mg PO BIDWM [facility] Ondansetron HCl (Ondansetron Hcl/Pf 4 Mg/2 Ml Sdv) 4 mg IVP ONCE STA Stop: 09/06/22 23:19 Last Admin: 09/06/22 23:24 Dose: 4 mg Review of Systems Constitutional: Reports Fever, Fatigue and Weakness Head: Reports Normocephalic and Atraumatic Eyes: Denies Vision Changes Ears: Denies Pain or Drainage Nose: Denies Post Nasal Drip or Congestion Mouth: Denies Sores Throat: Denies Sore Throat or Difficulty Swallowing Cardiovascular: Reports Edema (+lower ext edema); Denies Chest pain or Chest Pressure Respiratory: Reports Shortness of air; Denies Cough Gastrointestinal: Reports Other (Feels abdomen is swollen ); Denies Nausea, Vomiting or Abdominal pain Genitourinary: Denies Dysuria Dermatologic: Reports Skin Changes (+right lower leg redness and sores ) Neurological: Denies Headache, Dizziness, Syncope or Seizure Physical examination Most Recent Vital Signs: Most Recent Vital Signs Temperature 96.6 F L 09/07/22 10:00 Temperature Source Temporal Artery Scan 09/07/22 10:00 Temperature Source Infrared 09/06/22 20:41 Pulse Rate 72 09/07/22 10:00 Respiratory Rate 23 H 09/07/22 10:00 Blood Pressure 128/70 09/07/22 10:00 Blood Pressure Mean 89 09/07/22 10:00 Blood Pressure Right Arm 132/79 09/07/22 02:03 Blood Pressure Location Right Radial Artery 09/07/22 10:00 Blood Pressure Position Sitting 09/07/22 10:00 O2 Sat by Pulse Oximetry 94 L 09/07/22 10:00 Oxygen Delivery Method Room Air 09/07/22 10:00 Oxygen Flow Rate 2 09/07/22 05:27 Height 5 ft 11 in 09/07/22 02:03 Weight 368 lb 09/07/22 02:03 Telemetry Type Remote Telemetry 09/07/22 06:59 Telemetry Monitoring Continues 09/07/22 06:59 Telemetry Heart Rate 79 09/07/22 06:[address] Interval 0.16 09/07/22 06:59 EKG QRS Interval 0.08 09/07/22 06:59 EKG QT Interval 0.36 09/07/22 02:10 Telemetry Strip Reading SR 09/07/22 06:59 Appearance: Positive Well-appearing, Well-nourished, No Apparent Distress, Alert and Oriented x3 and Obese Skin: Positive Rashes (Right lower anterior leg - blisters noted that have opened up and draining honey colored drainage with surrounding cellulitis. ), [place], Warm, Good Turgor and Good Color Neck: Positive Supple and Midline Trachea Chest/Lungs: Positive Symmetrical With Equal Breath Sounds and Clear to Auscultation Bilaterally; Negative Rales, Rhonci or Wheezes Heart: Positive RRR GI/: Positive Soft, Nontender and Bowel Sounds Normal Musculoskeletal: Positive Normal Gait and Station Extremities: Positive Edema (1+ pitting edema juli lower ext. ) Neurological: Positive Cranial Nerves Intact, Alert and Muscle Strength 5/5 in Upper and Lower Extremities Bilaterally Psychiatric: Positive Oriented x4, Appropriate Mood and Appropriate Affect Labs This Visit Labs This Visit: Labs This Visit 09/06/22 09/06/22 09/07/22 20:26 21:40 00:41 WBC 6.93 RBC 4.25 L Hgb 13.4 L Hct 40.7 L MCV 95.8 H MCH 31.5 H MCHC 32.9 RDW Coeff of Henri 12.8 Plt Count 204 Immature Gran % (Auto) 0.4 Neut % (Auto) 75.1 Lymph % (Auto) 7.9 L Trigg % (Auto) 10.4 H Eos % (Auto) 5.9 Baso % (Auto) 0.3 Neut # (Auto) 5.2 Lymph # (Auto) 0.6 Trigg # (Auto) 0.7 Eos # (Auto) 0.4 Baso # (Auto) 0.0 Immature Gran # (Auto) 0.0 PT 10.8 INR 1.04 APTT 26.7 Puncture Site Lr Base Excess 7.9 H O2 Saturation 92.3 L ABG pH 7.49 H ABG pCO2 41.0 ABG pO2 59.0 L* ABG HCO3 31.2 H ABG Total CO2 32.5 H Baljeet Test Pos Hemoglobin 0.8 Oxyhemoglobin 90.9 L Carboxyhemoglobin 1.7 H Total Hemoglobin 13.4 O2 Delivery Device Ra FiO2 % 21.0 Sodium 136.7 Potassium 3.51 Chloride 97.1 L Carbon Dioxide 35.2 H Anion Gap 7.91 BUN 7.8 L Creatinine 0.64 Estimated GFR (MDRD) 135.00 BUN/Creatinine Ratio 12.18 Glucose 141.5 H Lactic Acid 3.50 H 1.33 Calcium 8.66 Total Bilirubin 0.48 AST 151.2 H ALT 68.4 H Alkaline Phosphatase 65.4 Troponin I < 0.012 NT-Pro-B Natriuret Pep Total Protein 7.43 Albumin 4.24 Globulin 3.19 Albumin/Globulin Ratio 1.32 Procalcitonin D-Dimer 589.96 H 09/07/22 09/07/22 06:40 09:55 WBC 5.41 RBC 3.77 L Hgb 11.9 L Hct 36.0 L MCV 95.5 H MCH 31.6 H MCHC 33.1 RDW Coeff of Henri 13.0 Plt Count 174 Immature Gran % (Auto) 0.4 Neut % (Auto) 67.2 Lymph % (Auto) 14.4 Trigg % (Auto) 12.8 H Eos % (Auto) 4.8 Baso % (Auto) 0.4 Neut # (Auto) 3.6 Lymph # (Auto) 0.8 Trigg # (Auto) 0.7 Eos # (Auto) 0.3 Baso # (Auto) 0.0 Immature Gran # (Auto) 0.0 PT INR APTT Puncture Site Base Excess O2 Saturation ABG pH ABG pCO2 ABG pO2 ABG HCO3 ABG Total CO2 Baljeet Test Hemoglobin Oxyhemoglobin Carboxyhemoglobin Total Hemoglobin O2 Delivery Device FiO2 % Sodium 135.7 Potassium 3.67 Chloride 100.4 Carbon Dioxide 33.6 H Anion Gap 5.37 BUN 8.4 L Creatinine 0.70 Estimated GFR (MDRD) 122.00 BUN/Creatinine Ratio 12.00 Glucose 145.6 H Lactic Acid 1.56 Calcium 7.94 L Total Bilirubin 0.32 AST 122.2 H D ALT 59.3 H Alkaline Phosphatase 52.0 Troponin I NT-Pro-B Natriuret Pep 26 Total Protein 6.45 Albumin 3.57 Globulin 2.88 Albumin/Globulin Ratio 1.23 Procalcitonin 0.29 H D-Dimer Imaging Imaging: EXAM: CTA CHEST HISTORY: Elevated D-dimer COMPARISON: None. FINDINGS: Postcontrast helical imaging was obtained through the thorax utilizing 2.5-mm collimation. The sagittal and coronal reconstructions were imaged and reviewed. Source images were utilized to our create rotating 3-D MIP images.. The thoracic inlet is unremarkable. There is no hilar or mediastinal lymphadenopathy. There is no evidence of pulmonary embolus. Heart is normal in size without pericardial effusion. No consolidation or effusion.. Fatty infiltration is seen within the visualized liver. Likely remote sternal body fracture. IMPRESSION: No evidence of pulmonary embolus. EXAM: SINGLE VIEW OF THE CHEST. History: Dyspnea. Comparison: Chest radiograph 09/02/2021 FINDINGS: Heart size is normal. No consolidation. No pleural fluid and no pneumothorax. No acute osseous abnormalities. Impression: Normal study Review Statement Review Statement: I have independently reviewed and interpreted the labs/EKGs/imaging that were ordered by the ER provider. I have reviewed all outside records that are available currently in our EMR including imaging/notes/labs from previous visits. Plan Plan: 1. Right lower extremity cellulitis - Continue vanc and cefepime. Tylenol prn for pain/fever. 2. Sepsis in setting of right lower extremity cellulitis - LA normalized. Fluids given in ER. Blood cultures pending. Stop fluids. 3. Lower extremity edema with hx of DVT - Venous US BLE ordered for tomorrow. D dimer elevated. Lovenox treatment dose ordered. 4. Dyspnea - CTA negative. Echo ordered for AM. 5. Elevated LFTs - US abdomen tomorrow. Hep panel and HIV ordered. 6. DMT2 - Hold metformin, humalog ss, accuchecks achs. 7. Hyeprtension - Continue home meds 8. GERD - Continue home meds DVT Prophylaxis: Lovenox, treatment dose Time Spent: Greater than 80 minutes spent with patient, 50% of the time spent with this patient was devoted to counseling and coordination of care. [facility] minutes spent discussing advance care planning. FULL CODE Admit to: Obs Discussed Plan of Care with Dr. Heidy Webber. Medications Medication Orders: Medications Ordered Category Date Time Status 0.9 % Sodium Chloride [Saline Flush] Meds 09/06/22 21:08 Active 1 syr IVF PRN PRN Acetaminophen [Tylenol] Meds 09/07/22 01:28 Active 650 mg PO Q4HR PRN Amlodipine Besylate [Norvasc] Meds 09/07/22 09:00 Active 5 mg PO DAILY Cefepime 2 gm/D5w [Maxipime 2 gm/50 ml D5w] Meds 09/07/22 07:30 Active 2 gm in 50 ml IV Q8HR Enoxaparin Sodium [Lovenox] Meds 09/07/22 09:00 Active 100 mg SUBCUT Q12HR Furosemide [Lasix Tab] Meds 09/07/22 09:00 Active 40 mg PO DAILY Gabapentin [Neurontin] Meds 09/07/22 09:00 Active 300 mg PO DAILY Lisinopril [Zestril] Meds 09/07/22 09:00 Active 20 mg PO DAILY Omeprazole [Prilosec] Meds 09/07/22 09:00 Active 20 mg PO QDAC Sodium Chloride 0.9% [Sodium Chloride] 1,000 ml Meds 09/07/22 01:28 Active IV 75 mls/hr Vancomycin/Water For Inj (Peg) [Vancomycin 1.5 Gram/300 Meds 09/07/22 09:00 Active ml Premix] 1.5 gm in 300 ml IV Q12HR
[2022-09-07] MEDS: HUMALOG SUBCUT PRN (20:38)
[2022-09-07] MEDS: KENALOG 0.1% TP PRN (21:20)
[2022-09-07] MEDS: TORADOL IVP PRN (23:02)
[2022-09-08] MEDS: MAXIPIME 2 GM/50 ML D5W 2 GM/50 ML BAG IV SCH ×2 (05:06→13:24)
[2022-09-08] MEDS: PRILOSEC PO SCH (06:41)
[2022-09-08 09:02] LABS: BASOPHILS % (AUTO) 0.3 % (0.0-3.0); EOSINOPHILS # (AUTO) 0.3 K/ul (0.0-0.7); EOSINOPHILS % (AUTO) 6.3 % (0.0-7.0); HEMATOCRIT 36.9 % (42.0-52.0); HEMOGLOBIN 12.3 g/dl (14.0-18.0); IMMATURE GRANULOCYTE % (AUTO) 0.3 % (0.0-5.0); LYMPHOCYTES # (AUTO) 0.9 K/uL (0.60-3.4); LYMPHOCYTES % (AUTO) 22.9 (10.0-50.0); MEAN CORPUSCULAR HGB CONC 33.3 (31.8-35.4); MEAN CORPUSCULAR VOLUME 96.1 fl (80.0-94.0); MONOCYTES # (AUTO) 0.7 K/uL (0.4-2.0); MONOCYTES % (AUTO) 16.8 (0-10); NEUTROPHILS # (AUTO) 2.1 K/ul (2.0-6.9); NEUTROPHILS % (AUTO) 53.4 % (42.2-75.2); PLATELET COUNT 160 10^3/uL (140-440); RDW COEFFICIENT OF VARIATION 12.9 % (11.6-14.8); RED BLOOD COUNT 3.84 10^6/ul (4.70-6.10); WHITE BLOOD COUNT 3.98 K/ul (4.2-10.2)
[2022-09-08] MEDS: NORVASC PO SCH (09:12)
[2022-09-08] MEDS: LASIX TAB PO SCH (09:13)
[2022-09-08] MEDS: ZESTRIL PO SCH (09:13)
[2022-09-08] MEDS: NEURONTIN PO SCH (09:14)
[2022-09-08] MEDS: VANCOMYCIN 1.5 GRAM/300 ML PREMIX 1.5 GM/300 ML BAG IV SCH (09:15)
[2022-09-08] MEDS: LOVENOX SUBCUT SCH (09:21)
[2022-09-08 09:22] LABS: ALBUMIN 3.75 g/dL (3.5-5.0); ASPARTATE AMINO TRANSFERASE 75.1 U/L (17-59); BILIRUBIN,TOTAL 0.28 mg/dL (0.2-1.3); CALCIUM 7.95 mg/dL (8.4-10.2); CARBON DIOXIDE 31.1 mmol/L (22-30.0); CHLORIDE 103.1 mmol/L (98-107); CREATININE 0.48 mg/dL (0.60-1.10); GLUCOSE 170.7 mg/dL (74-106); POTASSIUM 3.8 mmol/L (3.5-5.1); SODIUM 138.3 mmol/L (134.5-145); TOTAL PROTEIN 6.8 g/dL (6.3-8.2)
--- NOTE | 2022-09-08 11:37 | US ---
EXAM: BILATERAL LOWER EXTREMITY DEEP VENOUS ULTRASOUND WITH DOPPLER IMAGING HISTORY: Bilateral lower extremity swelling. TECHNIQUE: Puentes-scale ultrasound with compression maneuvers and color and spectral Doppler ultrasound at rest and with augmentation of the veins was performed. Images were obtained and stored in a perm anent archive. COMPARISON: None FINDINGS: RIGHT LOWER EXTREMITY: Common Femoral Vein: Normal compression. Normal flow on color Doppler images. Normal response to augm entation. Deep Femoral Vein: Normal compression. Normal flow on color Doppler images. Normal response to augmen tation. Femoral Vein: Normal compression. Normal flow on color Doppler images. Normal response to augmentatio n. Popliteal Vein: Normal compression. Normal flow on color Doppler images. Normal response to augmentat ion. Peroneal Vein: Normal compression. Normal flow on color Doppler images. Posterior Tibial Vein: Normal compression. Normal flow on color Doppler images. Anterior Tibial Vein: Normal compression. Normal flow on color Doppler images. Greater Saphenous Vein (Superficial): Normal compression. Normal flow on color Doppler images. LEFT LOWER EXTREMITY: Common Femoral Vein: Normal compression. Normal flow on color Doppler images. Normal response to augm entation. Deep Femoral Vein: Normal compression. Normal flow on color Doppler images. Normal response to augmen tation. Femoral Vein: Normal compression. Normal flow on color Doppler images. Normal response to augmentatio n. Popliteal Vein: Normal compression. Normal flow on color Doppler images. Normal response to augmentat ion. Peroneal Vein: Normal compression. Normal flow on color Doppler images. Posterior Tibial Vein: Normal compression. Normal flow on color Doppler images. Anterior Tibial Vein: Normal compression. Normal flow on color Doppler images. Greater Saphenous Vein (Superficial): Normal compression. Normal flow on color Doppler images. IMPRESSION: No deep venous thrombosis (DVT) in the bilateral lower extremities.
--- NOTE | 2022-09-08 11:38 | US ---
EXAM: ULTRASOUND ABDOMEN COMPLETE TECHNIQUE: Sonography of the abdomen and retroperitoneum was performed. Color Doppler images of the main portal vein were also obtained. Images were obtained and stored in a permanent archive. COMPARISON: 03/10/2021 HISTORY: Elevated LFTs FINDINGS: Liver: No suspicious mass or biliary ductal dilatation.The liver is diffusely hyperechoic, consisten t with fatty infiltration. The liver measures 21 cm in diameter. Main portal vein: Normal with normal hepatopedal flow. Biliary: The common bile duct measures 6 mm. Gallbladder: Status post cholecystectomy. Spleen: Normal in size and no focal lesion. Pancreas: No abnormality identified. Right Kidney: Measures 12.2 x 6.4 x 7.1 cm. No suspicious mass, stone, or hydronephrosis. Left Kidney: Measures 13.3 x 6.2 x 6.2 cm. No suspicious mass, stone, or hydronephrosis. IVC: Incompletely evaluated due to overlying bowel gas. Aorta: Incompletely evaluated due to overlying bowel gas. Other: No ascites. IMPRESSION: 1. The liver is enlarged with diffuse fatty infiltration. No suspicious mass or related to dilatatio n. 2. Status post cholecystectomy.
[2022-09-08] MEDS ORDERED: LASIX IVP ONE (11:51)
[2022-09-08] MEDS: TORADOL IVP PRN (12:25)
[2022-09-08] MEDS: HUMALOG SUBCUT PRN (12:34)
--- NOTE | 2022-09-08 13:06 | DCSUM ---
Admission Date Admission Date: 09/06/22 Discharge Date Discharge Date: 09/08/22 Admission Diagnosis Admission Diagnosis: Cellulitis of BLE Discharge Diagnosis Discharge Diagnosis: Cellulitis of BLE Hospital Provider Hospital Provider: MARY THOMPSON, [facility] Summary of History and Physical Summary of History and Physical: Patient is a 47-year-old male with past medical history of COPD, hypertension, diabetes and, DVT in early who presented from detention with chief complaint of lower extremity swelling and skin infection and shortness of breath. He states that he has noticed that over the last few days. He was started on Bactrim the day before admission. He states that he gets these lesions on his legs that become infected. 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 He states the swelling is new in the last few days as well. He feels that he is swollen from his abdomen down. He states that he is taken the Lasix since February but is unsure if if he has had an echo. His last IV meth use was in March shortly before he was incarcerated. He presented to the ER with a fever of 103. White blood cell count normal lactic was elevated but nor malized with fluids. Liver enzymes mildly elevated. He was given vancomycin. CTA of the chest was negative for PE. He was given treatment dose of Lovenox. On my evaluation today the patient is still complaining of shortness of breath. He has not ran any fevers since. White blood cell count is still normal. Hospital Course Subjective: Throughout course of stay, patient has received vancomycin and cefepime for treatment of cellulitis of bilateral lower extremities. Patient has history of DVT. Venous US was completed and negative. Sepsis criteria was met while in ER. Blood cultures were preliminary negative. LA normalized and fluids were given in ER. Patient has had complaints of dyspnea and feeling "bloated". Echo was completed that showed CHFpEF. Patient takes lasix 40 mg PO daily. Was given an additional dose IVP today and symptoms improved. He was also found to have elevated LFTs during his stay. Abdominal US was completed and showed fatty liver. Likely due to obesity, DM and other co- morbidities. LFTs improving as well. Diabetic Type 2 treatment was continued as well as hypertension home me dications. Appearance: Pleasant, No Apparent Distress and Alert HEENT: MMM, Supple and No JVD CVS: No Murmur and No Rubs Abdomen: Soft and Non-Tender Respiratory: No Dyspnea Extremities: Other (scattered erythematous areas to BLE. Clear drainage noted surrounding 2-3 of the areas on the R leg. ) Vital Signs: Most Recent Vital Signs Temperature 97.3 F L 09/08/22 10:00 Temperature Source Temporal Artery Scan 09/08/22 10:00 Temperature Source Infrared 09/06/22 20:41 Pulse Rate 136 H 09/08/22 10:00 Respiratory Rate 24 H 09/08/22 10:00 Blood Pressure 125/74 09/08/22 10:00 Blood Pressure Mean 91 09/08/22 10:00 Blood Pressure Right Arm 132/79 09/07/22 02:03 Blood Pressure Location Right Arm 09/08/22 10:00 Blood Pressure Position Supine 09/08/22 05:19 O2 Sat by Pulse Oximetry 95 09/08/22 10:00 Oxygen Delivery Method Nasal Cannula 09/08/22 10:16 Oxygen Flow Rate 2 09/08/22 10:16 Height 5 ft 11 in 09/07/22 02:03 Weight 368 lb 09/07/22 02:03 Telemetry Type Remote Telemetry 09/08/22 07:00 Telemetry Monitoring Continues 09/08/22 07:00 Telemetry Heart Rate 69 09/08/22 07:00 Telemetry SPO2 72 L 09/08/22 01:00 EKG [place] Interval 0.15 09/08/22 07:00 EKG QRS Interval 0.08 09/08/22 07:00 EKG QT Interval 0.39 09/08/22 01:00 Telemetry Strip Reading nsr 09/08/22 07:00 Lab Results Last 24 Hours: 09/08/22 08:58 WBC 3.98 L RBC 3.84 L Hgb 12.3 L Hct 36.9 L MCV 96.1 H MCH 32.0 H MCHC 33.3 RDW Coeff of Henri 12.9 Plt Count 160 Immature Gran % (Auto) 0.3 Neut % (Auto) 53.4 Lymph % (Auto) 22.9 [place] % (Auto) 16.8 H Eos % (Auto) 6.3 Baso % (Auto) 0.3 Neut # (Auto) 2.1 Lymph # (Auto) 0.9 [place] # (Auto) 0.7 Eos # (Auto) 0.3 Baso # (Auto) 0.0 Immature Gran # (Auto) 0.0 Sodium 138.3 Potassium 3.80 Chloride 103.1 Carbon Dioxide 31.1 H Anion Gap 7.90 BUN 11.0 Creatinine 0.48 L Estimated GFR (MDRD) 188.00 BUN/Creatinine Ratio 22.91 Glucose 170.7 H Calcium 7.95 L Total Bilirubin 0.28 AST 75.1 H D ALT 53.0 H Alkaline Phosphatase 57.0 Total Protein 6.80 Albumin 3.75 Globulin 3.05 Albumin/Globulin Ratio 1.22 Discharge Instructions Discharge Planning: Discharge Planning > 40 minutes If patient is discharged with left ventricular systolic dysfunction: no Activity as tolerated. Diabetic Diet Complete course of antibiotics Increase lasix to twice a day Follow-up with PCP Discharge Medications: Medications at Discharge (Home Meds & RX) metformin 1,000 mg tablet 1,000 mg PO BID 02/10/20 lisinopril 20 mg tablet 20 mg PO DAILY #30 tabs 11/18/20 amlodipine 5 mg tablet 5 mg PO DAILY 09/06/22 clonidine HCl 0.1 mg tablet 0.1 mg PO DAILY 09/06/22 furosemide 40 mg tablet 40 mg PO DAILY 09/06/22 gabapentin 300 mg capsule 300 mg PO DAILY 09/06/22 ibuprofen 200 mg capsule 200 mg PO Q6-8H PRN fever or pain 09/06/22 omeprazole 20 mg capsule,delayed release 20 mg PO DAILY 09/06/22 sulfamethoxazole 800 mg-trimethoprim 160 mg tablet (Bactrim DS) 1 tab PO BID 09/06/22 Discharge Plan Discharge Discharge Orders: Discharge Patient (ONCE); Ordered 09/08/22 Ordered By: GASTON SALINAS Activity Restrictions/Additional Instructions: Activity as tolerated. Diabetic Diet Complete course of antibiotics Increase lasix to twice a day Follow-up with PCP Instructions: Cellulitis (GEN) Patient Disposition: DISCH COURT/[facility]W ENF[facility]CEMENT Prescriptions: New clindamycin HCl 300 mg capsule 300 mg PO TID 7 Days Qty: 21 0RF Continued amlodipine 5 mg tablet 5 mg PO DAILY omeprazole 20 mg capsule,delayed release(DR/EC) 20 mg PO DAILY ibuprofen 200 mg capsule 200 mg PO Q6-8H PRN (Reason: fever or pain) clonidine HCl 0.1 mg tablet 0.1 mg PO DAILY gabapentin 300 mg capsule 300 mg PO DAILY metformin 1,000 mg Tablet 1,000 mg PO BID lisinopril 20 mg tablet 20 mg PO DAILY Qty: 30 0RF Changed furosemide 40 mg tablet 40 mg PO BID Qty: 60 0RF Discontinued sulfamethoxazole-trimethoprim [Bactrim DS] 800-160 mg tablet 1 tab PO BID Did you review [place] PR[employer] PRESS OPERATOR for ALL controlled substances?: No Discussed opioids are addictive and Narcan is available by prescription or from pharmacy.: No Condition: Stable
[2022-09-08] MEDS: KENALOG 0.1% TP PRN (13:24)
[2022-09-08 14:57] VITALS: BP 114/73; RESP 20; TEMP 97
[2022-09-09 05:20] LABS: HBsAgSCREEN Negative (Negative); HCV ANTIBODY Non Reactive (Non Reactive); HEP A AB, IgM Negative (Negative); HEP B CORE Ab, IgM Negative (Negative); HIV 4TH GENERATION W/REFLEX Non Reactive (Non Reactive)
--- NOTE | 2022-09-10 09:02 | ECHO2D ---
Date of Exam: 09/08/2022 Ordering Physician: HOSPITALIST/ ROSA M Room #: 120 Reason for Echo: SOB, SWELLING M-Mode Normal Adult Results LV Dimensions Normal Adult Results AoV Opening excursions >1.6 >1.6 LVEDD-base- 3.5-5.8 5.6 Ao root dimensions 2.0-3.7 3.9 LVESD-base- 3.1-4.6 L. Atrium dimensions 1.9-3.8 4.6 Post. Wall thickness 0.8-1.1 1.2 IV septum (thickness) 0.7-1.2 1.3 Post. Wall excursion 0.72-1.3 NORMAL Septal motion NORMAL Systolic motion R. Ventricular cavity 1.5-2.0 3.0 LVEF 60% 58% Paradoxical septal wall motion NORMAL 2-D : 2-D M Mode Echocardiogram was performed using apical four chamber and left parasternal long and short axis views. Mitral, tricuspid and aortic valves appear to be normal. Contractility of the left ventricle seems to be normal, so is the cavity size. ENLARGED LEFT ATRIAL CAVITY AND RIGHT VENTRICLE CAVITY. Aortic root appears to be normal. There is no pericardial effusion. There is no thrombus noted in the left ventricle or left atrial cavity. DIFFICULT STUDY M-MODE: MV: NORMAL AV: NORMAL TV: NORMAL PV: CHAMBER SIZE: ENLARGED RIGHT VENTRICLE AND LEFT ATRIAL CAVITIES WALL MOTION: NORMAL PERICARDIUM: NORMAL INTERPRETATION: 1. LEFT VENTRICLE HYPERTROPHY WITH ENLARGED LEFT ATRIAL CAVITY 2. ENLARGED RIGHT VENTRICLE CAVITY 3. NORMAL VALVES 4. LEFT VENTRICLE CAVITY--BORDERLINE 5.6 CM MTDD
== END 2022-09-08 16:00 ==
LOC: MEDSURG B 20:40 → ED 20:40 → MEDSURG B 09-07 02:09
PROVIDERS: ADMIT Hospitalist; ATTEND Nurse Practitioner Family
DX: I10 Essential (primary) hypertension; E11.65 Type 2 diabetes mellitus with hyperglycemia; L03.116 Cellulitis of left lower limb; R00.0 Tachycardia, unspecified; J44.9 Chronic obstructive pulmonary disease, unspecified; L03.115 Cellulitis of right lower limb; I51.7 Cardiomegaly; R74.01 Elevation of levels of liver transaminase levels; G47.33 Obstructive sleep apnea (adult) (pediatric); F17.210 Nicotine dependence, cigarettes, uncomplicated

== ENCOUNTER 2022-10-15 23:31 | Observation (INO) ==
[2022-10-15] MEDS ORDERED: ASPIRIN CHEWABLE PO STA (23:34)
--- NOTE | 2022-10-15 23:37 | ED.PDOC ---
General ED Provider: Dr. FRANKLIN VEGA MD Chief Complaint: Chest Pain Stated Complaint: Chest heaviness, shortness of breath 47-year-old male presents to the ER for evaluation of chest heaviness and shortness of breath that started 2 hours ago. Patient states he was in the shelter just sitting there when he began to feel like something was sitting on his chest. [place] like he could not catch his breath. Also notes that he has been experiencing swelling in his lower extremities. States they get worse and then get better. However he feels like they have gotten worse in the last 2 hours. EMS was called to the correctional facility and patient was transported to the ER. Patient was given aspirin and 1 sublingual nitro in route. Time Seen by Provider: 10/15/22 23:32 Mode of Arrival: Ambulance Information Source: EMT Nursing and Triage Documentation Reviewed and Agree: Yes Cardiovascular Complaint Exam Chest Pain Complaint/Exam Onset: Sudden Duration: 2 hours ago Symptoms Are: Still present Timing: Constant Initial Severity: Severe Current Severity: Severe Location: Reports Left anterior Pain Radiates: Reports None Character: Reports Heaviness Aggravating: Reports None Alleviating: Reports None Associated Signs and Symptoms: Reports Short of air Related Surgical History: Reports None AMI/ACS Risk Factors: Reports Diabetes and Hypertension Pulmonary Embolism Risk Factors: Reports None Prior Care for this Complaint: No Recent Stress Test: No JVD Present: No Subcutaneous Emphysema Present: No Diminshed Breath Sounds: No Reproducible Chest Wall Pain: No Bilateral Pulses Present: Yes Unequal Pulses Noted: No Review of Systems Review Of Systems Constitutional: Reports No symptoms Respiratory: Reports Shortness of Breath Cardiac: Reports Chest pain and Edema All Other Systems: Reviewed and Negative [facility] Medical History Anxiety F41.9 - Anxiety disorder, unspecified (ICD-10) Asthma J45.909 - Unspecified asthma, uncomplicated (ICD-10) 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.9 - Emphysema, unspecified (ICD-10) Depression F32.A - Depression, unspecified (ICD-10) Diabetes E11.9 - Type 2 diabetes mellitus without complications (ICD-10) Hypertension I10 - Essential (primary) hypertension (ICD-10) Sleep apnea in adult G47.30 - Sleep apnea, unspecified (ICD-10) Family History SISTER Cancer FATHER Diabetes Myocardial infarction Social History Smoking and tobacco status: Current every day smoker Substance use type: former substance user, IV drugs and methamphetamine Surgical History History of cholecystectomy Z90.49 - Acquired absence of other specified parts of digestive tract (ICD- 10) Physical Exam Physical Exam Appearance: Reports Well-appearing Ill-appearing: None Pain Distress: Moderate Eyes: Reports LUI ENT: Reports Oropharynx normal Neck: Supple Respiratory: Reports Airway patent, Breath sounds clear, Breath sounds equal and Other (tachypnea) Cardiovascular: Reports RRR and Pulses normal GI/: Reports Soft and Nontender Musculoskeletal: Reports Edema (Weeping sores from right lower extremity) Skin: Reports Warm Neurological: Reports Alert and Oriented Psychiatric: Reports Affect appropriate Interpretation EKG Interpretation EKG Interpretation By: ED Physician Time of EKG #1: 23:27 Rate: Normal Rhythm: Sinus Ectopy: None [place]: NL ST Segment: Normal Critical Care Note Critical Care Note Total Critical Care Time (mins): 35 Course Course 10/15/22 23:45 10/15/22 23:45 Orders, Labs, Meds: Lab Review 10/15/22 23:45 WBC 6.82 RBC 3.98 L Hgb 12.9 L Hct 38.1 L MCV 95.7 H MCH 32.4 H MCHC 33.9 RDW Coeff of Henri 12.7 Plt Count 188 Immature Gran % (Auto) 0.4 Neut % (Auto) 62.2 Lymph % (Auto) 20.8 [place] % (Auto) 9.1 Eos % (Auto) 7.2 H Baso % (Auto) 0.3 Neut # (Auto) 4.2 Lymph # (Auto) 1.4 [place] # (Auto) 0.6 Eos # (Auto) 0.5 Baso # (Auto) 0.0 Immature Gran # (Auto) 0.0 Puncture Site Rb Base Excess 3.3 H O2 Saturation 93.2 L ABG pH 7.50 H ABG pCO2 34.0 L ABG pO2 61.0 L ABG HCO3 26.5 ABG Total CO2 27.5 H Baljeet Test + Hemoglobin 1.1 Oxyhemoglobin 90.8 L Carboxyhemoglobin 2.7 H Total Hemoglobin 12.9 O2 Delivery Device Cannula Oxygen Liter Flow 4.00 FiO2 % 36.0 Sodium 139.1 Potassium 3.84 Chloride 103.0 Carbon Dioxide 28.9 Anion Gap 11.04 BUN 12.1 Creatinine 0.52 L Estimated GFR (MDRD) 172.00 BUN/Creatinine Ratio 23.26 Glucose 273.8 H Calcium 8.17 L Total Bilirubin 0.34 AST 40.4 ALT 47.8 Alkaline Phosphatase 57.9 Troponin I < 0.012 NT-Pro-B Natriuret Pep < 20 Total Protein 7.29 Albumin 3.91 Globulin 3.38 Albumin/Globulin Ratio 1.15 D-Dimer 458.27 Orders Category Date Time Status ADMIT OBSERVATION [PLACE PATIENT OBSERVATION] .TO ADMISSION 10/16/22 01:22 Active MEDSURG (MONITORED BED) ABG DRAW REQUEST Stat CARDIO 10/15/22 23:33 Completed EKG-(ED ONLY) Stat CARDIO 10/16/22 00:53 Ordered EKG-(IP & OP ONLY) DAILY CARDIO 10/16/22 01:30 Ordered EKG-(IP & OP ONLY) DAILY CARDIO 10/17/22 01:30 Ordered OXYGEN Routine CARDIO 10/16/22 01:24 Ordered INTAKE & OUTPUT Q8HR CARE 10/16/22 01:24 Active TELEMETRY MONITORING TELE CARE 10/16/22 01:22 Active TELEMETRY MONITORING TELE CARE 10/16/22 01:24 Active VITAL SIGNS Q8HR CARE 10/16/22 01:24 Active CARDIAC DIET DIETARY 10/16/22 Breakfast Ordered ABG COOX Stat LAB 10/15/22 23:45 Completed CBC W/ AUTO DIFF Stat LAB 10/15/22 23:45 Completed CMP [COMPREHENSIVE METABOLIC PANEL] Stat LAB 10/15/22 23:45 Completed D-DIMER Stat LAB 10/15/22 23:45 Completed ED PROBNP [NT-PROBNP(ED)] Stat LAB 10/15/22 23:45 Completed TROPONIN I Stat LAB 10/15/22 23:45 Completed TROPONIN I Timed LAB 10/16/22 01:25 Ordered TROPONIN I Timed LAB 10/16/22 06:00 Ordered Acetaminophen [Tylenol] Meds 10/16/22 01:23 Ordered 650 mg PO Q4H PRN Amlodipine Besylate [Norvasc] Meds 10/15/22 23:51 Discontinued 5 mg PO ONCE ONE Aspirin [Aspirin Chewable] Meds 10/15/22 23:34 Discontinued 324 mg PO ONCE STA Aspirin [Aspirin EC] Meds 10/16/22 08:30 Ordered 81 mg PO DAILYWM Furosemide [Lasix] Meds 10/15/22 23:50 Discontinued 40 mg IVP ONCE STA Ipratropium/Albuterol Neb [Duoneb] Meds 10/16/22 00:47 Discontinued 3 ml NEB ONCE ONE Nitroglycerin [Nitrostat] Meds 10/15/22 23:34 Active 0.4 mg SL Q5MIN X 3 DOSES PRN RESUSCITATION STATUS Routine OTHERS 10/16/22 01:23 Ordered CHEST, 1V AP ONLY Stat RADS 10/15/22 23:33 Completed Medications Generic Name Dose Route Start Last Admin Trade Name Freq PRN Reason Stop Dose Admin Acetaminophen 650 mg 10/16/22 01:23 Acetaminophen 325 Mg Tablet PO Q4H PRN Pain Aspirin 81 mg 10/16/22 08:30 Aspirin 81 Mg Tablet.Dr PO DAILYWM [place] Nitroglycerin 0.4 mg 10/15/22 23:34 10/15/22 23:47 Nitroglycerin 0.4 Mg Tab.Subl SL 0.4 mg Q5MIN X 3 DOSES PRN Administration Chest Pain Discontinued Medications Generic Name Dose Route Start Last Admin Trade Name Freq PRN Reason Stop Dose Admin Albuterol/Ipratropium 3 ml 10/16/22 00:47 10/16/22 00:58 Ipratropium/Albuterol Vial.Neb NEB 10/16/22 00:48 3 ml ONCE ONE Administration Amlodipine Besylate 5 mg 10/15/22 23:51 Amlodipine Besylate 5 Mg Tablet PO 10/15/22 23:52 ONCE ONE Aspirin 324 mg 10/15/22 23:34 Aspirin 81 Mg Tab.Chew PO 10/15/22 23:35 ONCE STA Furosemide 40 mg 10/15/22 23:50 10/16/22 00:50 Furosemide Inj 40 Mg/4 Ml Vial IVP 10/15/22 23:51 40 mg ONCE STA Administration 11:52 PM Review of patient's medical record reveals recent hospitalization for bilateral lower extremity cellulitis, shortness of breath. Patient received an echocardiogram, CTA, IV antibiotics. Had improvement of his symptoms. Echocardiogram showed left ventricular hypertrophy, dilated right ventricle as well, preserved ejection fraction. CTA negative for PE. Patient was not noted to be hypertensive during that hospitalization. ABG performed in the emergency department this evening showing a PaO2 of 61, arterial saturation of 93%. Comparison to ABG performed on last hospitalization shows similar results. However, this ABG is on 4 L, the previous ABG was on room air. Patient markedly hypertensive in the emergency department, 190s over 90s. Patient given sublingual nitro with minimal improvement in his blood pressure. 12:06 AM Manual blood pressure shows blood pressure 140/90. We will hold off on giving amlodipine. We will be giving furosemide for lower extremity swelling, shortness of breath. 12:25 AM Cardiac biomarkers, BNP, D-dimer negative. Remainder of work-up noncontributory. Patient without leukocytosis. Chest x-ray is stable. Plan to repeat cardiac enzyme. Reassess after furosemide has had a chance to kick in, see if patient has improvement. Patient reassessed at previous interval and did not really feel any improvement despite his blood pressure being significantly improved. 12:47 AM Ultrasound-guided IV placed by me. Patient still reporting some chest discomfort. Blood pressure still improved at 156/92. Now we will proceed with furosemide now that IV has been established. Patient has a history of COPD. States that when he is not incarcerated he uses a CPAP machine at night and have a nebulizer machine every day. Has not been receiving either while incarcerated since April. We will try DuoNeb to see if that improves his breathing and chest tightness. Oxygen weaned down to 1-1/2 L nasal cannula. Patient maintaining 96%. We will attempt to wean off. Patient reassessed at 1:15 AM Reporting mild improvement after DuoNeb. States chest tightness went from an 8 to a 7. Still tachypneic. Reporting that he feels very edematous over the past few days. States that his testicles are massively swollen. Patient has been given been a dose of furosemide in the ER. Has not had any urine output as of yet. Reports that his urine stream has been very minimal over the last couple of days. Renal function is normal. Given that he is still tachypneic, reporting discomfort, will admit for cardiac rule out, diuresis. Case discussed with Rebecca Zamudio. Will place in observation. Vital Signs: Temp Pulse Resp BP Pulse Ox 10/16/22 00:50 80 20 156/92 H 98 07/26/23 23:32 99.1 F 96 16 186/108 H 97 MICHELLE Risk Score Age >/= 65: No >/= 3 CAD Risk Factors: Yes Known CAD (Stenosis >/= 50%): No ASA Use in Past 7 Days: Yes Severe Angina (>/= 2 episodes in 24 hours): No EKG ST Changes >/= 0.5mm: No Postive Cardiac Marker: No MICHELLE Total Score: 2 MICHELLE Risk Score: Risk Score Odds of by 30D 0 0.1 (0.1-0.2) 1 0.3 (0.2-0.3) 2 0.4 (0.3-0.5) 3 0.7 (0.6-0.9) 4 1.2 (1.0-1.5) 5 2.2 (1.9-2.6) 6 3.0 (2.5-3.6) 7 4.8 (3.8-6.1) Discharge Plan Discharge Patient Disposition: PLACED OBSERVATION Discharge Problem: Chest pain, Shortness of breath, Hypoxia Did you review [place] ENV[employer]MENT[employer] HE[employer] MANAGER for ALL controlled substances?: Not Applicable ED Provider: FRANKLIN VEGA Physician Progress Note: []
[2022-10-15] MEDS: NITROSTAT SL PRN (23:47)
[2022-10-15] MEDS ORDERED: LASIX IVP STA (23:50)
[2022-10-15 23:51] LABS: ABG O2 HGB 90.8 % (95-100); BEecf 3.3 (-2.0-3.0); COHb 2.7 (0.5-1.5); HCO3 26.5 (21-28); MetHb 1.1 (0-1.5); TCO2 27.5 (19-24); sO2 93.2 % (94-98); tHb 12.9 g/dl (11.7-17.4)
[2022-10-15] MEDS ORDERED: NORVASC PO ONE (23:51)
[2022-10-16 00:03] LABS: BASOPHILS % (AUTO) 0.3 % (0.0-3.0); EOSINOPHILS # (AUTO) 0.5 K/ul (0.0-0.7); EOSINOPHILS % (AUTO) 7.2 % (0.0-7.0); HEMATOCRIT 38.1 % (42.0-52.0); HEMOGLOBIN 12.9 g/dl (14.0-18.0); IMMATURE GRANULOCYTE % (AUTO) 0.4 % (0.0-5.0); LYMPHOCYTES # (AUTO) 1.4 K/uL (0.60-3.4); LYMPHOCYTES % (AUTO) 20.8 (10.0-50.0); MEAN CORPUSCULAR HEMOGLOBIN 32.4 pg (27.0-31.0); MEAN CORPUSCULAR HGB CONC 33.9 (31.8-35.4); MEAN CORPUSCULAR VOLUME 95.7 fl (80.0-94.0); MONOCYTES # (AUTO) 0.6 K/uL (0.4-2.0); MONOCYTES % (AUTO) 9.1 (0-10); NEUTROPHILS # (AUTO) 4.2 K/ul (2.0-6.9); NEUTROPHILS % (AUTO) 62.2 % (42.2-75.2); PLATELET COUNT 188 10^3/uL (140-440); RDW COEFFICIENT OF VARIATION 12.7 % (11.6-14.8); RED BLOOD COUNT 3.98 10^6/ul (4.70-6.10); WHITE BLOOD COUNT 6.82 K/ul (4.2-10.2)
[2022-10-16 00:04] LABS: ALANINE AMINOTRANSFERASE 47.8 U/L (0-50); ALBUMIN 3.91 g/dL (3.5-5.0); ALKALINE PHOSPHATASE 57.9 U/L (38-126); ASPARTATE AMINO TRANSFERASE 40.4 U/L (17-59); BILIRUBIN,TOTAL 0.34 mg/dL (0.2-1.3); BLOOD UREA NITROGEN 12.1 mg/dL (9-20); CALCIUM 8.17 mg/dL (8.4-10.2); CARBON DIOXIDE 28.9 mmol/L (22-30.0); CREATININE 0.52 mg/dL (0.60-1.10); GLUCOSE 273.8 mg/dL (74-106); POTASSIUM 3.84 mmol/L (3.5-5.1); SODIUM 139.1 mmol/L (134.5-145); TOTAL PROTEIN 7.29 g/dL (6.3-8.2)
--- NOTE | 2022-10-16 00:09 | DI ---
EXAM: PORTABLE CHEST HISTORY: Chest pain COMPARISON: Single-view chest 09/06/2022 FINDINGS: The cardiomediastinal silhouette is stable. The lungs are clear bilaterally. There are n o acute osseous abnormalities. IMPRESSION: No evidence of active pulmonary disease
[2022-10-16 00:20] LABS: TROPONIN I < 0.012 ng/ml (0.0000-0.120)
[2022-10-16] MEDS ORDERED: DUONEB NEB ONE (00:47)
[2022-10-16] MEDS: TYLENOL PO PRN (02:31)
[2022-10-16 04:00] VITALS: BMI 50.8
[2022-10-16] MEDS: NITROSTAT SL PRN ×3 (05:35→21:33)
[2022-10-16] MEDS ORDERED: ATIVAN IVP STA (05:47)
--- NOTE | 2022-10-16 10:29 | PCM ---
Date of Service Date Seen by Provider: 10/16/22 Time Seen by Provider: 09:00 Admit Day/Time Admission Date: 10/16/22 Admission Time: 01:22 Reason for Admission Chief Complaint: CHEST PAIN,SOB, HYPOXIA Hospital Provider Hospital Provider: LOGAN TUCKER [facility]-C, [facility] History of Present Illness History of Present Illness: Patient is a 47-year-old male from [facility] with past medical history of hypertension, diabetes, GERD, COPD, sleep apnea who presented to the ER for ches t pain and shortness of breath and lower extremity edema. He states that he was just sitting doing nothing when he had a severe chest pain that radiated down his left arm. He was found to be hypoxic and placed on 4 L. He was given nitro, DuoNeb, Lasix in the ER with some relief. He was able to be weaned to 1 to 2 L. He continued to have some chest discomfort and was admitted to [facility]. He had an echo about a month ago when he was admitted. No recent stress test. This morning he had chest pain again 9 out of 10. He was given nitro without relief. He was given Ativan 1 mg IV which seemed to help his anxiety and chest pain. He is also a smoker. Tropes negative EKG unremarkable. He reports that he has lower extremity edema, he feels as though his abdomen is swollen, and he has scrotal swelling as well. Case Discussed With Case Discussed With: Patient's case was discussed with the ER Physicians, Dr. Bessie Bishop. 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.9 - Emphysema, unspecified (ICD-10) Depression F32.A - Depression, unspecified (ICD-10) Diabetes E11.9 - Type 2 diabetes mellitus without complications (ICD-10) Hypertension I10 - Essential (primary) hypertension (ICD-10) Sleep apnea in adult G47.30 - Sleep apnea, unspecified (ICD-10) Surgical History History of cholecystectomy Z90.49 - Acquired absence of other specified parts of digestive tract (ICD- 10) Family History SISTER Cancer FATHER Diabetes Myocardial infarction Social History Smoking and tobacco status: Current every day smoker Substance use type: former substance user, IV drugs and methamphetamine Allergies Allergies Allergy/AdvReac Type Severity Reaction Status Date / Time morphine AdvReac Rash Verified 10/16/22 03:52 Penicillins AdvReac Swelling Verified 10/16/22 03:52 Current Medications Home Medications metformin 1,000 mg tablet 1,000 mg PO BID 02/10/20 [History Confirmed 10/15/22 Last Taken 10/15/22] amlodipine 5 mg tablet 5 mg PO DAILY 09/06/22 [History Confirmed 10/15/22 Last Taken 10/15/22] clonidine HCl 0.1 mg tablet 0.1 mg PO TID 09/06/22 [History Confirmed 10/16/22 Last Taken 10/16/22] gabapentin 300 mg capsule 300 mg PO DAILY 09/06/22 [History Confirmed 10/16/22 Last Taken 10/16/22] ibuprofen 200 mg capsule 200 mg PO Q6-8H PRN fever or pain 09/06/22 [History Confirmed 10/16/22 Last Taken 09/06/22] omeprazole 20 mg capsule,delayed release 20 mg PO DAILY 09/06/22 [History Confirmed 10/15/22 Last Taken 10/15/22] furosemide 40 mg tablet 40 mg PO QAM 10/15/22 [History Confirmed 10/15/22 Last Taken 10/15/22] lisinopril 20 mg tablet 40 mg PO DAILY 10/15/22 [History Confirmed 10/15/22 Last Taken 10/15/22] Home Acetaminophen (Acetaminophen 325 Mg Tablet) 650 mg PO Q4H PRN PRN Reason: Pain Last Admin: 10/16/22 02:31 Dose: 650 mg Acetaminophen (Acetaminophen 325 Mg Tablet) 650 mg PO Q6H PRN PRN Reason: headache Last Admin: 10/16/22 11:55 Dose: 650 mg Amlodipine Besylate (Amlodipine Besylate 5 Mg Tablet) 5 mg PO DAILY [place] Last Admin: 10/16/22 11:13 Dose: 5 mg Aspirin (Aspirin 81 Mg Tablet.) 81 mg PO DAILYWM [facility] Last Admin: 10/16/22 11:13 Dose: 81 mg Clonidine (Clonidine Hcl 0.1 Mg Tablet) 0.1 mg PO TID [facility] Last Admin: 10/16/22 15:32 Dose: 0.1 mg Enoxaparin Sodium (Enoxaparin Sodium 40 Mg/0.4 Ml Syr) 40 mg SUBCUT DAILY [facility] Last Admin: 10/16/22 11:14 Dose: 40 mg Furosemide (Furosemide Inj 40 Mg/4 Ml Vial) 40 mg IVP BIDAC [facility] Last Admin: 10/16/22 11:14 Dose: 40 mg Gabapentin (Gabapentin 300 Mg Capsule) 300 mg PO DAILY [facility] Last Admin: 10/16/22 11:13 Dose: 300 mg Insulin Human Lispro (Insulin Lispro 100 Unit/Ml (3 Ml) Vial) 0 unit SUBCUT PRN PRN; Protocol PRN Reason: Hyperglycemia Last Admin: 10/16/22 11:57 Dose: 4 unit Lisinopril (Lisinopril 40 Mg Tablet) 40 mg PO DAILY [facility] Last Admin: 10/16/22 11:13 Dose: 40 mg Nitroglycerin (Nitroglycerin 0.4 Mg Tab.Subl) 0.4 mg SL Q5MIN X 3 DOSES PRN PRN Reason: Chest Pain Last Admin: 10/16/22 05:35 Dose: 0.4 mg Omeprazole (Omeprazole 20 Mg Capsule.) 20 mg PO QDAC [facility] Last Admin: 10/16/22 11:13 Dose: 20 mg Discontinued Medications Albuterol/Ipratropium (Ipratropium/Albuterol Vial.Neb) 3 ml NEB ONCE ONE Stop: 10/16/22 00:48 Last Admin: 10/16/22 00:58 Dose: 3 ml Amlodipine Besylate (Amlodipine Besylate 5 Mg Tablet) 5 mg PO ONCE ONE Stop: 10/15/22 23:52 Last Admin: 10/16/22 02:31 Dose: 5 mg Aspirin (Aspirin 81 Mg Tab.Chew) 324 mg PO ONCE STA Stop: 10/15/22 23:35 Last Admin: 10/16/22 07:10 Dose: Not Given Furosemide (Furosemide Inj 40 Mg/4 Ml Vial) 40 mg IVP ONCE STA Stop: 10/15/22 23:51 Last Admin: 10/16/22 00:50 Dose: 40 mg Lisinopril (Lisinopril 10 Mg Tablet) 40 mg PO DAILY [place] Lorazepam (Lorazepam Inj 2 Mg/Ml Vial) 1 mg IVP ONCE STA Stop: 10/16/22 05:48 Last Admin: 10/16/22 06:01 Dose: 1 mg Review of Systems Constitutional: Denies Fatigue or Weakness Head: Denies Normocephalic or Atraumatic Throat: Denies Sore Throat or Difficulty Swallowing Cardiovascular: Reports Chest pain, Chest Pressure and Edema Respiratory: Reports Shortness of air; Denies Cough Gastrointestinal: Denies Nausea, Vomiting or Abdominal pain Genitourinary: Reports Other (+scrotal swelling); Denies Dysuria or Hematuria Neurological: Denies Headache, Syncope or Seizure Psychiatric: Reports Anxiety Physical examination Most Recent Vital Signs: Most Recent Vital Signs Temperature 97.0 F L 10/16/22 05:25 Temperature Source Temporal Artery Scan 10/16/22 05:25 Temperature Source Oral 10/15/22 23:32 Pulse Rate 70 10/16/22 08:00 Respiratory Rate 20 10/16/22 08:00 Blood Pressure 163/103 H 10/16/22 05:25 Blood Pressure Mean 123 10/16/22 05:25 Blood Pressure Left Arm 155/103 10/16/22 03:49 Blood Pressure Location Left Arm 10/16/22 05:25 Blood Pressure Position Supine 10/16/22 05:25 O2 Sat by Pulse Oximetry 94 L 10/16/22 09:15 Oxygen Delivery Method Room Air 10/16/22 09:15 Oxygen Flow Rate 2 10/16/22 08:00 Height 6 ft 10/16/22 03:49 Weight 374 lb 12.8 oz 10/16/22 03:49 Telemetry Type Remote Telemetry 10/16/22 07:00 Telemetry Monitoring Continues 10/16/22 07:00 Telemetry Heart Rate 85 10/16/22 07:00 Telemetry SPO2 72 L 09/08/22 01:00 EKG DE Interval 0.01 L 10/16/22 07:00 EKG QRS Interval 0.05 L 10/16/22 07:00 Telemetry Strip Reading SR 10/16/22 07:00 Appearance: Positive Alert and Oriented x3 and Obese Skin: Positive [place], Warm, Good Turgor and Good Color HEENT: Positive Normocephalic and Atraumatic Neck: Positive Supple and Midline Trachea Chest/Lungs: Positive Clear to Auscultation Bilaterally; Negative Rales, Rhonci or Wheezes Heart: Positive RRR GI/: Positive Soft, Nontender, Bowel Sounds Normal, No Distention and Other (+Obese abdomen ) Extremities: Positive Edema (1+ pitting edema bilaterally. ) Neurological: Positive Cranial Nerves Intact, Alert, Oriented, Muscle Strength 5/5 in Upper and Lower Extremities Bilaterally and Other Psychiatric: Positive Oriented x4, Appropriate Mood and Appropriate Affect Labs This Visit Labs This Visit: Labs This Visit 10/15/22 10/16/22 10/16/22 23:45 01:30 06:00 WBC 6.82 RBC 3.98 L Hgb 12.9 L Hct 38.1 L MCV 95.7 H MCH 32.4 H MCHC 33.9 RDW Coeff of Henri 12.7 Plt Count 188 Immature Gran % (Auto) 0.4 Neut % (Auto) 62.2 Lymph % (Auto) 20.8 [place] % (Auto) 9.1 Eos % (Auto) 7.2 H Baso % (Auto) 0.3 Neut # (Auto) 4.2 Lymph # (Auto) 1.4 [place] # (Auto) 0.6 Eos # (Auto) 0.5 Baso # (Auto) 0.0 Immature Gran # (Auto) 0.0 Puncture Site Rb Base Excess 3.3 H O2 Saturation 93.2 L ABG pH 7.50 H ABG pCO2 34.0 L ABG pO2 61.0 L ABG HCO3 26.5 ABG Total CO2 27.5 H Baljeet Test + Hemoglobin 1.1 Oxyhemoglobin 90.8 L Carboxyhemoglobin 2.7 H Total Hemoglobin 12.9 O2 Delivery Device Cannula Oxygen Liter Flow 4.00 FiO2 % 36.0 Sodium 139.1 Potassium 3.84 Chloride 103.0 Carbon Dioxide 28.9 Anion Gap 11.04 BUN 12.1 Creatinine 0.52 L Estimated GFR (MDRD) 172.00 BUN/Creatinine Ratio 23.26 Glucose 273.8 H Calcium 8.17 L Total Bilirubin 0.34 AST 40.4 ALT 47.8 Alkaline Phosphatase 57.9 Troponin I < 0.012 < 0.012 < 0.012 NT-Pro-B Natriuret Pep < 20 Total Protein 7.29 Albumin 3.91 Globulin 3.38 Albumin/Globulin Ratio 1.15 D-Dimer 458.27 Imaging Imaging: EXAM: PORTABLE CHEST HISTORY: Chest pain COMPARISON: Single-view chest 09/06/2022 FINDINGS: The cardiomediastinal silhouette is stable. The lungs are clear bilaterally. There are no acute osseous abnormalities. IMPRESSION: No evidence of active pulmonary disease Review Statement Review Statement: I have independently reviewed and interpreted the labs/EKGs/imaging that were ordered by the ER provider. I have reviewed all outside records that are available currently in our EMR including imaging/notes/labs from previous visits. Plan Plan: 1. Chest pain - Trops negative. NM studies are available tomorrow. Dobutamine stress test with NM imaging ordered. Echo done last month with LVEF 58%, LVH, and enlarged right ventricle cavity. 2. HFpEF - Some venous stasis could be playing a role as well. But with hypoxia, scrotal swelling etc will see how patient responds to lasix 40 bid. He had 1400 out overnight. daily weights. I&Os. Alexander hosava. 3. Acute hypoxic respiratory failure in setting of HFpEF - On RA this morning. RT consult. 4. Hypertension - Continue home meds 5. DMT2 - Hold metformin. Accuchecks achs. Sliding scale ordered. DVT Prophylaxis: Lovenox Time Spent: Greater than 80 minutes spent with patient, 50% of the time spent with this patient was devoted to counseling and coordination of care. Advanced Care Planning: FULL CODE 3 minutes spent discussing advance care planning. Smoking Cessation: 3 minutes spent discussing smoking cessation. Admit to: Obs Discussed Plan of Care with Dr. Heidy Webber. Medications Medication Orders: Medications Ordered Category Date Time Status Acetaminophen [Tylenol] Meds 10/16/22 01:23 Active 650 mg PO Q4H PRN Aspirin [Aspirin EC] Meds 10/16/22 08:30 Active 81 mg PO DAILYWM Nitroglycerin [Nitrostat] Meds 10/15/22 23:34 Active 0.4 mg SL Q5MIN X 3 DOSES PRN
[2022-10-16] MEDS ORDERED: ZESTRIL PO SCH (11:00)
[2022-10-16] MEDS: NEURONTIN PO SCH (11:13)
[2022-10-16] MEDS: CATAPRES PO SCH ×3 (11:13→20:44)
[2022-10-16] MEDS: NORVASC PO SCH (11:13)
[2022-10-16] MEDS: ZESTRIL PO SCH (11:13)
[2022-10-16] MEDS: PRILOSEC PO SCH (11:13)
[2022-10-16] MEDS: ASPIRIN EC PO SCH (11:13)
[2022-10-16] MEDS: LASIX IVP SCH ×2 (11:14→17:17)
[2022-10-16] MEDS: LOVENOX SUBCUT SCH (11:14)
[2022-10-16] MEDS ORDERED: TYLENOL PO PRN (11:35)
[2022-10-16] MEDS: HUMALOG SUBCUT PRN ×2 (11:57→17:17)
[2022-10-17 05:41] LABS: BASOPHILS % (AUTO) 0.3 % (0.0-3.0); EOSINOPHILS # (AUTO) 0.6 K/ul (0.0-0.7); EOSINOPHILS % (AUTO) 7.9 % (0.0-7.0); HEMATOCRIT 37.1 % (42.0-52.0); IMMATURE GRANULOCYTE % (AUTO) 0.4 % (0.0-5.0); LYMPHOCYTES # (AUTO) 1.5 K/uL (0.60-3.4); LYMPHOCYTES % (AUTO) 21.7 (10.0-50.0); MEAN CORPUSCULAR HEMOGLOBIN 31.1 pg (27.0-31.0); MEAN CORPUSCULAR HGB CONC 32.3 (31.8-35.4); MEAN CORPUSCULAR VOLUME 96.1 fl (80.0-94.0); MONOCYTES # (AUTO) 0.6 K/uL (0.4-2.0); MONOCYTES % (AUTO) 8.6 (0-10); NEUTROPHILS # (AUTO) 4.3 K/ul (2.0-6.9); NEUTROPHILS % (AUTO) 61.1 % (42.2-75.2); PLATELET COUNT 170 10^3/uL (140-440); RDW COEFFICIENT OF VARIATION 12.9 % (11.6-14.8); RED BLOOD COUNT 3.86 10^6/ul (4.70-6.10)
[2022-10-17 05:54] LABS: ALANINE AMINOTRANSFERASE 40.6 U/L (0-50); ALBUMIN 3.52 g/dL (3.5-5.0); ALKALINE PHOSPHATASE 58.9 U/L (38-126); BLOOD UREA NITROGEN 12.3 mg/dL (9-20); CALCIUM 8.14 mg/dL (8.4-10.2); CHLORIDE 100.9 mmol/L (98-107); CREATININE 0.53 mg/dL (0.60-1.10); GLUCOSE 156.9 mg/dL (74-106); POTASSIUM 3.63 mmol/L (3.5-5.1); TOTAL PROTEIN 6.58 g/dL (6.3-8.2)
[2022-10-17 06:08] LABS: TROPONIN I < 0.012 ng/ml (0.0000-0.120)
[2022-10-17] MEDS: HUMALOG SUBCUT PRN ×2 (06:24→12:02)
[2022-10-17] MEDS: PRILOSEC PO SCH (06:25)
[2022-10-17] MEDS: LASIX IVP SCH (06:25)
[2022-10-17] MEDS: TYLENOL PO PRN (07:24)
[2022-10-17 07:40] VITALS: RESP 16
[2022-10-17] MEDS: ASPIRIN EC PO SCH (08:37)
[2022-10-17] MEDS: CATAPRES PO SCH ×2 (08:37→14:25)
[2022-10-17] MEDS: NORVASC PO SCH (08:37)
[2022-10-17] MEDS: NEURONTIN PO SCH (08:37)
[2022-10-17] MEDS: LOVENOX SUBCUT SCH (08:38)
[2022-10-17] MEDS: ZESTRIL PO SCH (08:39)
[2022-10-17] MEDS ORDERED: ATROPINE SULFATE PFS IVP ONE (09:37)
[2022-10-17] MEDS ORDERED: DOBUTAMINE 250 MG-D5W 250 ML 250 MG/250 ML BAG IV SCH (09:45)
[2022-10-17] MEDS ORDERED: DOBUTAMINE 250 MG-D5W 250 ML 250 MG/250 ML BAG IV ONE (09:46)
[2022-10-17] MEDS ORDERED: ATROPINE SULFATE PFS ONE (09:46)
--- NOTE | 2022-10-17 12:37 | DOBSTECHST ---
Ordering Physician: HOSPITALIST/[facility] Date of Test: 10/17/22 Occupation: UNEMPLOYED Reason for Examination: CHEST PAIN Smoking History: QUIT 7 MONTHS AGO Height: 72" Weight: 374 LBS Current Medications: AMLODIPINE, CLONIDINE, FUROSEMIDE, GABAPENTIN, LISINOPRIL, METFORMIN Target Heart Rate: 148/175 MAX S-T Segment Stage Time HR BPM BP MMHG Rhythm +/- Elevation Depression Symptoms Control Sitting 76 130/78 SR NONE Dobutamine 250mg/D5W 5mcg/KG/mn 10mcg/KG/mn 3" 96 154/60 SR X NONE 15mcg/KG/mn 2" 113 160/50 SR X NONE 20mcg/KG/mn :35 117 SR NONE 25mcg/KG/mn 30mcg/KG/mn 35mcg/KG/mn 40mcg/KG/mn 2" MIN POST INFUSION 113 160/52 SR X NONE 6" MIN POST INFUSION 10" 91 81 128/60 116/64 SR SR X X NONE NONE DURATION OF INFUSION 5:35 MAXIMUM HEART RATE REACHED 126 BPM Interpretation: 1. NO EVIDENCE OF ISCHEMIA FROM RESTING HEART RATE 76 BPM TO 126 BPM WITH DOBUTAMINE INFUSION 2. NO CHEST PAIN OR DISCOMFORT 3. RUN OF VENTRICULAR TACHYCARDIA --6 BEAT AT THE HEIGHT OF DOBUTAMINE INFUSION 4. LEFT VENTRICLE CONTRACTILITY NORMAL AT REST AND IMPROVED WITH DOBUTAMINE INFUSION SESTAMIBI TO FOLLOW MTDD
--- NOTE | 2022-10-17 12:48 | ECHOSTRESS ---
Date of Exam: 10/17/2022 Ordering Physician: HOSPITALIST/CLINIC Reason for Echo: CHEST PAIN, DOBUTAMINE STRESS TEST--NO ISCHEMIA M-Mode Normal Adult Results LV Dimensions Normal Adult Results AoV Opening excursions >1.6 LVEDD-base- 3.5-5.8 Ao root dimensions 2.0-3.7 LVESD-base- 3.1-4.6 L. Atrium dimensions 1.9-3.8 Post. Wall thickness 0.8-1.1 IV septum (thickness) 0.7-1.2 Post. Wall excursion 0.72-1.3 Septal motion Systolic motion R. Ventricular cavity 1.5-2.0 LVEF 60% Paradoxical septal wall motion 2-D: NORMAL LEFT VENTRICLE CONTRACTILITY--RESTING AND WITH DOBUTAMINE INFUSION M-MODE: MV: AV: TV: PV: CHAMBER SIZE: WALL MOTION: NORMAL LEFT VENTRICLE CONTRACTILITY--RESTING AND WITH DOBUTAMINE INFUSION PERICARDIUM: INTERPRETATION: 1. NORMAL LEFT VENTRICLE CONTRACTILITY--RESTING AND WITH DOBUTAMINE INFUSION SESTAMIBI TO FOLLOW MTDD
--- NOTE | 2022-10-17 12:51 | NM ---
CARDIAC STRESS TEST HISTORY: Chest pain. COMPARISON: None of this type. TECHNIQUE: Resting: The patient was injected with 10.1 millicuries of 99m Tc Sestamibi (Cardiolite) intravenous ly after which a "resting" SPECT study of the heart was performed. Stress: The patient was stressed pharmacologically with dobutamine and at the appropriate time injec zheng with 30.2 millicuries of 99m Tc Sestamibi (Cardiolite) intravenously after which a "stress" SPEC T study of the heart was performed. Gated images of the heart were also obtained to assess wall melani on and calculate ejection fraction. For details of the stress protocol employed, reference is made t o the separate report of the performing physician. FINDINGS: The stress perfusion images demonstrate regions of decreased activity in the distal anteri or wall and basal inferior wall which appear to improve at rest with more subtle similar findings in the basal anterior wall and mid inferolateral wall suggesting ischemia. The left ventricular ejection fraction (LVEF) is 65%. IMPRESSION: 1. Left ventricular myocardial perfusion demonstrates regions of reversible ischemia in the distal a nterior wall and basal inferior wall consistent with ischemia with more subtle similar findings in th e basal anterior wall and mid inferolateral wall. 2. The left ventricular ejection fraction (LVEF) is 65%. 3. The left ventricular wall motion is within normal limits.
--- NOTE | 2022-10-17 13:24 | DCSUM ---
Admission Date Admission Date: 10/16/22 Discharge Date Discharge Date: 10/17/22 Admission Diagnosis Admission Diagnosis: 1. Chest pain Discharge Diagnosis Discharge Diagnosis: 1. Chest pain with abnormal stress test Hospital Provider Hospital Provider: LOG[facility] TUCKER [facility], [facility] Summary of History and Physical Summary of History and Physical: Patient is a 47-[facility] with past medical history of hypertension, diabetes, GERD, obesity, history of IV drug use, COPD, sleep apnea who presented to the ER for chest pain and shortness of breath and lower extremity edema. He states that he was just sitting doing nothing when he had a severe chest pain that radiated down his left arm. He was found to be hypoxic and placed on 4 L. He was given nitro, DuoNeb, Lasix in the ER with some relief. He was able to be weaned to 1 to 2 L. He continued to have some chest discomfort and was admitted to [facility]. He had an echo about a month ago when he was admitted. No recent stress test. This morning he had chest pain again 9 out of 10. He was given nitro without relief. He was given Ativan 1 mg IV which seemed to help his anxiety and chest pain. He is also a smoker. Trops negative EKG unremarkable. He reports that he has lower extremity edema, he feels as though his abdomen is swollen, and he has scrotal swelling as well. Hospital Course Subjective: On 10/16 patient did well overall. He diuresed with Lasix 40 twice daily.. Continue to have lower extremity swelling but has been on RA. Later in the night around 10 PM he had chest pain again which was relieved with nitro. Repeat EKGs unchanged. On 10/17 he is chest pain-free at this time. He had a dobutamine stress test with Cardiolite done today since nuclear med was available to us. No evidence of ischemia on the dobutamine portion however his nuclear med portion is showing regions of reversible ischemia in the distal anterior wall and basal inferior wall and also the basal anterior wall and mid inferior lateral wall. LVEF is 65%. Discussed with the patient and the guard present need for transfer and likely catheterization. Patient says he is familiar with this procedure due to his father. He has been made NPO. [facility] contacted. Dr. Gee, cisco network engineer, excepts patient. Plan for cath later this evening by interventional cardiology. Appearance: Pleasant, No Apparent Distress, Alert and Other (+Obese.) HEENT: MMM and Supple CVS: No Murmur, No Rubs and No Gallop Abdomen: Soft, Non-Tender and No Distention Respiratory: No Accessory Muscle Use Extremities: Other (+1-2+ edema juli lower ext. ) Vital Signs: Most Recent Vital Signs Temperature 96.1 F L 10/17/22 05:13 Temperature Source Temporal Artery Scan 10/17/22 05:13 Temperature Source Oral 10/15/22 23:32 Pulse Rate 79 10/17/22 05:13 Respiratory Rate 16 10/17/22 07:39 Blood Pressure 142/89 H 10/17/22 07:39 Blood Pressure Mean 106 10/17/22 07:39 Blood Pressure Left Arm 155/103 10/16/22 03:49 Blood Pressure Location Left Arm 10/17/22 07:39 Blood Pressure Position Sitting 10/17/22 07:39 O2 Sat by Pulse Oximetry 95 10/17/22 05:13 Oxygen Delivery Method Room Air 10/17/22 10:00 Oxygen Flow Rate 2 10/17/22 09:15 Height 6 ft 10/16/22 03:49 Weight 373 lb 14 oz 10/17/22 09:57 Telemetry Type Remote Telemetry 10/17/22 07:00 Telemetry Monitoring Continues 10/17/22 07:00 Telemetry Heart Rate 83 10/17/22 07:00 Telemetry SPO2 72 L 09/08/22 01:00 EKG IA Interval 0.19 10/17/22 07:00 EKG QRS Interval 0.10 10/17/22 07:00 Telemetry Strip Reading NSR 10/17/22 07:00 Imaging: CARDIAC STRESS TEST HISTORY: Chest pain. COMPARISON: None of this type. TECHNIQUE: Resting: The patient was injected with 10.1 millicuries of 99m Tc Sestamibi (Cardiolite) intravenously after which a "resting" SPECT study of the heart was performed. Stress: The patient was stressed pharmacologically with dobutamine and at the appropriate time injected with 30.2 millicuries of 99m Tc Sestamibi (Cardiolite) intravenously after which a "stress" SPECT study of the heart was performed. Gated images of the heart were also obtained to assess wall motion and calculate ejection fraction. For details of the stress protocol employed, reference is made to the separate report of the performing physician. FINDINGS: The stress perfusion images demonstrate regions of decreased activity in the distal anterior wall and basal inferior wall which appear to improve at rest with more subtle similar findings in the basal anterior wall and mid inferolateral wall suggesting ischemia. The left ventricular ejection fraction (LVEF) is 65%. IMPRESSION: 1. Left ventricular myocardial perfusion demonstrates regions of reversible ischemia in the distal anterior wall and basal inferior wall consistent with ischemia with more subtle similar findings in the basal anterior wall and mid inferolateral wall. 2. The left ventricular ejection fraction (LVEF) is 65%. 3. The left ventricular wall motion is within normal limits. Date of Exam: 10/17/2022Ordering Physician: HOSPITALIST/CLINIC Reason for Echo: CHEST PAIN, DOBUTAMINE STRESS TEST--NO ISCHEMIA M-Mode Normal Adult Results LV Dimensions Normal Adult Results AoV Opening excursions >1.6 LVEDD-base- 3.5-5.8 Ao root dimensions 2.0-3.7 LVESD-base- 3.1-4.6 L. Atrium dimensions 1.9-3.8 Post. Wall thickness 0.8-1.1 IV septum (thickness) 0.7-1.2 Post. Wall excursion 0.72-1.3 Septal motion Systolic motion R. Ventricular cavity 1.5-2.0 LVEF 60% Paradoxical septal wall motion 2-D: NORMAL LEFT VENTRICLE CONTRACTILITY--RESTING AND WITH DOBUTAMINE INFUSION M-MODE: MV: AV: TV: PV: CHAMBER SIZE: WALL MOTION: NORMAL LEFT VENTRICLE CONTRACTILITY--RESTING AND WITH DOBUTAMINE INFUSION PERICARDIUM: INTERPRETATION: 1. NORMAL LEFT VENTRICLE CONTRACTILITY--RESTING AND WITH DOBUTAMINE INFUSION SESTAMIBI TO FOLLOW Ordering Physician: HOSPITALIST/[facility] Date of Test: 10/17/22 Occupation: UNEMPLOYED Reason for Examination: CHEST PAIN Smoking History: QUIT 7 MONTHS AGO Height: 72" Weight: 374 LBS Current Medications: AMLODIPINE, CLONIDINE, FUROSEMIDE, GABAPENTIN, LISINOPRIL, METFORMIN Target Heart Rate: 148/175 MAX S-T Segment Stage Time HR BPM BP MMHG Rhythm +/- Elevation Depression Symptoms Control Sitting 76 130/78 SR NONE Dobutamine 250mg/D5W 5mcg/KG/mn 10mcg/KG/mn 3" 96 154/60 SR X NONE 15mcg/KG/mn 2" 113 160/50 SR X NONE 20mcg/KG/mn :35 117 SR NONE 25mcg/KG/mn 30mcg/KG/mn 35mcg/KG/mn 40mcg/KG/mn 2" MIN POST INFUSION 113 160/52 SR X NONE 6" MIN POST [id number]" 91 81 128/60 116/64 SR SR X X NONE NONE DURATION OF INFUSION 5:35 MAXIMUM HEART RATE REACHED 126 BPM Interpretation: 1. NO EVIDENCE OF ISCHEMIA FROM RESTING HEART RATE 76 BPM TO 126 BPM WITH DOBUTAMINE INFUSION 2. NO CHEST PAIN OR DISCOMFORT 3. RUN OF VENTRICULAR TACHYCARDIA --6 BEAT AT THE HEIGHT OF DOBUTAMINE INFUSION 4. LEFT VENTRICLE CONTRACTILITY NORMAL AT REST AND IMPROVED WITH DOBUTAMINE INFUSION SESTAMIBI TO FOLLOW Lab Results Last 24 Hours: 10/17/22 10/16/22 05:15 21:32 WBC 7.00 RBC 3.86 L Hgb 12.0 L Hct 37.1 L MCV 96.1 H MCH 31.1 H MCHC 32.3 RDW Coeff of Henri 12.9 Plt Count 170 Immature Gran % (Auto) 0.4 Neut % (Auto) 61.1 Lymph % (Auto) 21.7 [place] % (Auto) 8.6 Eos % (Auto) 7.9 H Baso % (Auto) 0.3 Neut # (Auto) 4.3 Lymph # (Auto) 1.5 [place] # (Auto) 0.6 Eos # (Auto) 0.6 Baso # (Auto) 0.0 Immature Gran # (Auto) 0.0 Sodium 138.0 Potassium 3.63 Chloride 100.9 Carbon Dioxide 32.0 H Anion Gap 8.73 BUN 12.3 Creatinine 0.53 L Estimated GFR (MDRD) 168.00 BUN/Creatinine Ratio 23.20 Glucose 156.9 H Calcium 8.14 L Total Bilirubin 0.40 AST 40.0 ALT 40.6 Alkaline Phosphatase 58.9 Troponin I < 0.012 < 0.012 Total Protein 6.58 Albumin 3.52 Globulin 3.06 Albumin/Globulin Ratio 1.15 Discharge Instructions Discharge Planning: Discharge Planning > [address] Heidy Webber. Transfer to [facility], Dr. Gee, cardiology accepts. Discharge Medications: Medications at Discharge (Home Meds & RX) metformin 1,000 mg tablet 1,000 mg PO BID 02/10/20 amlodipine 5 mg tablet 5 mg PO DAILY 09/06/22 clonidine HCl 0.1 mg tablet 0.1 mg PO TID 09/06/22 gabapentin 300 mg capsule 300 mg PO DAILY 09/06/22 ibuprofen 200 mg capsule 200 mg PO Q6-8H PRN fever or pain 09/06/22 omeprazole 20 mg capsule,delayed release 20 mg PO DAILY 09/06/22 furosemide 40 mg tablet 40 mg PO QAM 10/15/22 lisinopril 20 mg tablet 40 mg PO DAILY 10/15/22 Discharge Plan Discharge Discharge Orders: Discharge Patient (ONCE); Ordered 10/17/22 Ordered By: LOGAN TUCKER Activity Restrictions/Additional Instructions: Transfer to [facility] Dr. 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
[2022-10-17] MEDS ORDERED: KENALOG 0.1% TP ONE (14:08)
[2022-10-17 14:18] VITALS: BP 138/76; PULSE 84; TEMP 97
== END 2022-10-17 15:20 | disposition short-term general hospital (02) ==
LOC: MEDSURG B 23:31 → ED 23:31 → MEDSURG B 10-16 03:11
PROVIDERS: ADMIT Hospitalist; ATTEND Physician Assistant
DX: R94.39 Abnormal result of other cardiovascular function study; Z79.899 Other long term (current) drug therapy; J44.9 Chronic obstructive pulmonary disease, unspecified; G47.30 Sleep apnea, unspecified; I10 Essential (primary) hypertension; E11.9 Type 2 diabetes mellitus without complications; Z79.4 Long term (current) use of insulin; R09.02 Hypoxemia; E66.9 Obesity, unspecified; F17.210 Nicotine dependence, cigarettes, uncomplicated; Z51.81 Encounter for therapeutic drug level monitoring; R60.0 Localized edema; Z79.84 Long term (current) use of oral hypoglycemic drugs; K21.9 Gastro-esophageal reflux disease without esophagitis; R07.9 Chest pain, unspecified